=== PATIENT | male | born 1950 | race Caucasian/White ===

== ENCOUNTER 2022-12-23 00:22 | Emergency (ER) | payer MEDICARE ==
[2022-12-23] MEDS ORDERED: Sodium Chloride 0.9% 1000 ML 1,000 ML ONE (00:42)
[2022-12-23] MEDS ORDERED: Sodium Chloride 0.9% 1000 ML 1,000 ML IV SCH (00:45)
--- NOTE | 2022-12-23 00:55 | ERPHSYRPT ---
- History of Present Illness Time Seen by Provider: 12/23/22 00:45 Source: patient Exam Limitations: no limitations Physician History: Patient 72-year-old male presents to our ED via EMS for evaluation status post found down on the street. Patient has a history of seizures. Patient was followed by marimar Ruiz. Patient appears intoxicated. Patient admits to have been drinking. Patient smokes cigarettes. Patient does not recall the circumstances causing his fall. Patient arrived collared not boarded. Patient complains of pain to his face. Patient has abrasions over his nose. There are some dried blood in the left nare. No chest pain or shortness of breath. No nausea vomiting or diaphoresis. Patient reported he lives across the [place] from where he was found down. Per report patient was with friends drinking at a [place] [employer]. Patient's past medical history is not known at this time. His allergy profile is not known at this time. Patient voices no other complaints or concerns at this time. Portions of this note were created with voice recognition technology. There may be grammatical, spelling, punctuation or sound alike errors Timing/Duration: today Severity: moderate Modifying Factors: Improves With: nothing Associated Symptoms: denies symptoms Home Medications: Unobtainable 12/23/22 [History] - Review of Systems Constitutional: No Symptoms, No Fever, No Chills Eyes: No Symptoms Ears, Nose, & Throat: No Symptoms Respiratory: No Symptoms, No Cough, No Dyspnea Cardiac: No Symptoms, No Chest Pain, No Edema, No Syncope Abdominal/Gastrointestinal: No Symptoms, No Abdominal Pain, No Nausea, No Vomiting, No Diarrhea Genitourinary Symptoms: No Symptoms, No Dysuria Musculoskeletal: No Symptoms, No Back Pain, No Neck Pain Skin: No Symptoms, No Rash Neurological: No Symptoms, No Dizziness, No Focal Weakness, No Sensory Changes Psychological: No Symptoms Endocrine: No Symptoms Hematologic/Lymphatic: No Symptoms Immunological/Allergic: No Symptoms All Other Systems: Reviewed and Negative - Nursing Vital Signs Nursing Vital Signs: Initial Vital Signs Pulse Rate 77 12/23/22 00:26 Respiratory Rate 27 H 12/23/22 00:26 Blood Pressure 146/80 12/23/22 00:26 O2 Sat by Pulse Oximetry 96 12/23/22 00:26 Pain Scale Pain Intensity 4 - Physical Exam General Appearance: no apparent distress, alert Eye Exam: PERRL/EOMI, eyes nml inspection Ears, Nose, Throat Exam: normal ENT inspection, TMs normal, pharynx normal, moist mucous membranes, other (Superficial abrasions to the bridge of his nose. There is some blood at the left nare.) Neck Exam: normal inspection, non-tender, supple, full range of motion Respiratory Exam: normal breath sounds, lungs clear, No respiratory distress Cardiovascular Exam: regular rate/rhythm, normal heart sounds, normal peripheral pulses, other (Tenderness to palpation at left side of rib cage. Overlying soft tissue intact) Gastrointestinal/Abdomen Exam: soft, normal bowel sounds, No tenderness, No mass Back Exam: normal inspection, normal range of motion, No CVA tenderness, No vertebral tenderness Extremity Exam: normal inspection, normal range of motion, pelvis stable, other (Abrasion to left elbow and left shoulder involved extremity is neurovascular intact distally. Patient denies bony pain at these locations. Patient able to move extremity/elbow through full range of motion) Neurologic Exam: alert, oriented x 3, cooperative, normal mood/affect, nml cerebellar function, nml station & gait, sensation nml, No motor deficits Skin Exam: normal color, warm, dry, No rash Lymphatic Exam: No adenopathy SpO2 Interpretation: normal SpO2: 97 O2 Delivery: Room Air - Course Nursing assessment & vital signs reviewed: Yes EKG Interpreted by Me: RATE (81), Sinus Rhythm, NORMAL AXIS, prolonged QT interval - CT Exams Maxillofacial Bones CT Interpretation: Tele-radiologist Report (No fracture can be detected of the facial bones. Chronic pansinusitis) Cervical Spine CT Interpretation: Tele-radiologist Report (No acute osseous abnormality. Cervical spine spondylitic changes) Chest CT Interpretation: Tele-radiologist Report (Subpleural contusion with subtle nodularity/alveolar density along with groundglass changes representing possible pulmonary hemorrhage in the left upper lobe adjacent to the rib fractures. Minimal left-sided pleural effusion. Fractures of the fourth through seventh rib on the left side with mild d) Head CT Interpretation: Tele-radiologist Report (No definite calvarium fractures no intracerebral or extra-axial hematoma) Lumbar Spine CT Interpretation: Tele-radiologist Report (No acute osseous abnormality lumbar spine spondylitic changes) Ordered Tests: Active Orders 24 hr Category Date Time Status Warehouse Manager STAT Care 12/23/22 00:33 Active Clean Catch Urine Specimen STAT Care 12/23/22 02:53 Active EKG-ER Only STAT Care 12/23/22 00:33 Active IV Insertion STAT Care 12/23/22 00:33 Active Pulse Oximetry (ED) STAT Care 12/23/22 00:33 Active Telemetry q4h Care 12/23/22 03:09 Active ABDOMEN AND PELVIS W CONTRAST [CT] Stat Exams 12/23/22 00:35 Taken CERVICAL SPINE WO CONTRAST [CT] Stat Exams 12/23/22 00:34 Completed CHEST WITH CONTRAST [CT] Stat Exams 12/23/22 00:34 Taken FACIAL BONES WO CONTRAST [CT] Stat Exams 12/23/22 00:34 Completed HEAD WITHOUT CONTRAST [CT] Stat Exams 12/23/22 00:34 Completed RECONSTRUCTION [CT] Stat Exams 12/23/22 01:53 Completed RECONSTRUCTION [CT] Stat Exams 12/23/22 01:57 Completed CBC W DIFF Stat Lab 12/23/22 00:50 Completed CMP Stat Lab 12/23/22 00:50 Completed ETHYL ALCOHOL Stat Lab 12/23/22 00:50 Completed NT PRO BNPII Stat Lab 12/23/22 00:50 Completed TROPONIN Q4H Lab 12/23/22 00:50 Completed TROPONIN Q4H Lab 12/23/22 04:45 Ordered TROPONIN Q4H Lab 12/23/22 08:45 Ordered UA W/RFX UR CULTURE Stat Lab 12/23/22 02:56 Completed Urine Triage Profile Stat Lab 12/23/22 02:56 Received Medication Summary Generic Name Dose Route Start Last Admin Trade Name Freq PRN Reason Stop Dose Admin Sodium Chloride 1,000 mls @ 100 mls/hr 12/23/22 00:45 12/23/22 00:43 Sodium Chloride 0.9% 1000 Ml IV 01/22/23 00:44 100 mls/hr .Q10H MARIBEL Administration Magnesium Sulfate/Dextrose 100 mls @ 100 mls/hr 12/23/22 03:15 12/23/22 04:18 Magnesium 1 Gm / 100 Ml D5w IV 12/23/22 05:14 100 mls/hr Q1H MARIBEL Administration Potassium Chloride 20 meq in 100 mls @ 50 mls/hr 12/23/22 03:15 12/23/22 03:33 Potassium Chloride 20 Meq In Water 100ml IV 12/23/22 07:14 50 mls/hr Q2H MARIBEL Administration Discontinued Medications Generic Name Dose Route Start Last Admin Trade Name July PRN Reason Stop Dose Admin Ketorolac Tromethamine 30 mg 12/23/22 03:34 12/23/22 03:36 Ketorolac Tromethamine 30 Mg/Ml Inj IV 12/23/22 03:35 30 mg STAT ONE Administration Ketorolac Tromethamine Confirm 12/23/22 03:34 Ketorolac Tromethamine 30 Mg/Ml Inj Administered 12/23/22 03:35 Dose 30 mg .ROUTE .STK-MED ONE Lab/Rad Data: Laboratory Result Diagrams 12/23/22 00:50 12/23/22 00:50 Laboratory Results 12/23/22 12/23/22 12/23/22 Range/Units 02:56 00:50 00:50 WBC (4.0-10.5) x10^3/uL RBC (4.1-5.6) x10^6/uL Hgb (12.5-18.0) g/dL Hct (42-50) % MCV (78-100) fL MCH (26-32) pg MCHC (32-36) g/dL RDW (11.5-14.0) % Plt Count (150-450) x10^3/uL MPV (7.5-11.0) fL Gran % (36.0-66.0) % Immature Gran % (Auto) (0.00-0.4) % Nucleat RBC Rel Count (0.00-0.1) % Eos # (Auto) (0-0.5) x10^3/uL Immature Gran # (Auto) (0.00-0.03) x10^3u/L Absolute Lymphs (auto) (1.0-4.6) x10^3/uL Absolute Monos (auto) (0.0-1.3) x10^3/uL Absolute Nucleated RBC (0.00-0.01) x10^3u/L Lymphocytes % (24.0-44.0) % Monocytes % (0.0-12.0) % Eosinophils % (0.00-5.0) % Basophils % (0.0-0.4) % Absolute Granulocytes (1.4-6.9) x10^3/uL Basophils # (0-0.4) x10^3/uL Sodium (137-145) mmol/L Potassium (3.5-5.1) mmol/L Chloride (98-107) mmol/L Carbon Dioxide (22-30) mmol/L Anion Gap (5-15) MEQ/L BUN (9-20) mg/dL Creatinine (0.66-1.25) mg/dL Estimated GFR ML/MIN Glucose (74-106) mg/dL Calcium (8.4-10.2) mg/dL Total Bilirubin (0.2-1.3) mg/dL AST (17-59) U/L ALT (0-50) U/L Alkaline Phosphatase (38-126) U/L Troponin I < 0.012 (0.000-0.034) ng/mL NT-Pro-B Natriuret Pep 252 (<300) pg/mL Serum Total Protein (6.3-8.2) g/dL Albumin (3.5-5.0) g/dL Urine Color Yellow (Yellow) Urine Appearance Clear (Clear) Urine pH 5.5 (4.6-8.0) Ur Specific [place] 1.015 (1.005-1.030) Urine Protein Negative (Negative) Urine Glucose (UA) Negative (Negative) mg/dL Urine Ketones Negative (Negative) Urine Blood Negative (Negative) Urine Nitrite Negative (Negative) Urine Bilirubin Negative (Negative) Urine Urobilinogen 0.2 (0.2) mg/dL Ur Leukocyte Esterase Negative (Negative) U Hyaline Cast (Auto) NONE SEEN (0-2) /LPF Urine Microscopic RBC 0-2 (0-5) /HPF Urine Microscopic WBC 0-2 (0-5) /HPF Ur Epithelial Cells None Seen (None Seen) /HPF Urine Bacteria None Seen (None Seen) /HPF Urine Culture Reflexed NO (NO) Ethyl Alcohol (0-10) mg/dL 12/23/22 12/23/22 Range/Units 00:50 00:50 WBC 12.0 H (4.0-10.5) x10^3/uL RBC 4.20 (4.1-5.6) x10^6/uL Hgb 12.8 (12.5-18.0) g/dL Hct 38.6 L (42-50) % MCV 91.9 (78-100) fL MCH 30.5 (26-32) pg MCHC 33.2 (32-36) g/dL RDW 13.9 (11.5-14.0) % Plt Count 377 (150-450) x10^3/uL MPV 8.6 (7.5-11.0) fL Gran % 61.4 (36.0-66.0) % Immature Gran % (Auto) 0.7 H (0.00-0.4) % Nucleat RBC Rel Count 0.0 (0.00-0.1) % Eos # (Auto) 0.57 H (0-0.5) x10^3/uL Immature Gran # (Auto) 0.08 H (0.00-0.03) x10^3u/L Absolute Lymphs (auto) 3.15 (1.0-4.6) x10^3/uL Absolute Monos (auto) 0.73 (0.0-1.3) x10^3/uL Absolute Nucleated RBC 0.00 (0.00-0.01) x10^3u/L Lymphocytes % 26.3 (24.0-44.0) % Monocytes % 6.1 (0.0-12.0) % Eosinophils % 4.8 (0.00-5.0) % Basophils % 0.7 (0.0-0.4) % Absolute Granulocytes 7.39 H (1.4-6.9) x10^3/uL Basophils # 0.08 (0-0.4) x10^3/uL Sodium 127 L (137-145) mmol/L Potassium 3.4 L (3.5-5.1) mmol/L Chloride 95 L (98-107) mmol/L Carbon Dioxide 21 L (22-30) mmol/L Anion Gap 13.9 (5-15) MEQ/L BUN 15 (9-20) mg/dL Creatinine 1.04 (0.66-1.25) mg/dL Estimated GFR > 60.0 ML/MIN Glucose 96 (74-106) mg/dL Calcium 7.4 L (8.4-10.2) mg/dL Total Bilirubin 0.20 (0.2-1.3) mg/dL AST 24 (17-59) U/L ALT 15 (0-50) U/L Alkaline Phosphatase 83 (38-126) U/L Troponin I (0.000-0.034) ng/mL NT-Pro-B Natriuret Pep (<300) pg/mL Serum Total Protein 6.6 (6.3-8.2) g/dL Albumin 3.7 (3.5-5.0) g/dL Urine Color (Yellow) Urine Appearance (Clear) Urine pH (4.6-8.0) Ur Specific [place] (1.005-1.030) Urine Protein (Negative) Urine Glucose (UA) (Negative) mg/dL Urine Ketones (Negative) Urine Blood (Negative) Urine Nitrite (Negative) Urine Bilirubin (Negative) Urine Urobilinogen (0.2) mg/dL Ur Leukocyte Esterase (Negative) U Hyaline Cast (Auto) (0-2) /LPF Urine Microscopic RBC (0-5) /HPF Urine Microscopic WBC (0-5) /HPF Ur Epithelial Cells (None Seen) /HPF Urine Bacteria (None Seen) /HPF Urine Culture Reflexed (NO) Ethyl Alcohol 199 H (0-10) mg/dL - Progress Progress: improved Progress Note: 12/23/22 05:[address] Forbes trauma surgeon at [facility] who accepts patient at 5:05 AM. 12/23/22 05:12 Patient is a 72-year-old male presents to our ED via EMS after being found down on the [place]. Patient was reportedly unresponsive however upon arrival to our ED patient was alert and oriented x4. Physical exam reveals tenderness at the left rib. Patient has abrasions to the left elbow and left shoulder. Superficial abrasions to the knees. Also abrasions over the bridge of the nose. Testing ordered include EKG which revealed normal sinus rhythm. CBC essentially nonremarkable. CMP reveals a potassium of 3.4. Patient also hyponatremic. Potassium replaced patient received IV magnesium IV potassium and IV fluids. Troponin negative. Alcohol elevated at 199. Patient received Toradol for pain control. Patient had a CT head which is nonremarkable. CT face nonremarkable. CT C-spine negative. Cervical collar removed. CTA chest reveals fractures of ribs 456 and 7. Rib 7 is fractured at 2 locations. The underlying lung shows contusion possible hemorrhage. Bilateral lung bases may also demonstrate lung contusion. CT abdomen pelvis sent and unremarkable. 3D reconstruction views of the thoracic and lumbar spine were performed. No fracture dislocation of the lumbar spine. There are some endplate changes most notably at T7 which reveals compression of the endplate which may or may not be related to trauma. Plan of care discussed with patient. He agrees to transfer to [facility] for further evaluation and treatment. Portions of this note were created with voice recognition technology. There may be grammatical, spelling, punctuation or sound alike errors Complexity of problems addressed is high, threat to bodily function No critical care time Complexity of data reviewed and analyzed is extensive. Test ordered test reviewed. Results of labs and imaging studies were analyzed. Clinical correlation made between the findings and history and physical examination. Management discussed with trauma surgeon Dr. Forbes who accepts transfer. Transfer was accepted at 5:05 AM. Risk of complication and or risk of morbidity/mortality of patient management is high. Patient requires hospitalization/transfer to higher level of care Vital stable. Time spent to transfer patient is approximately 20 minutes. Plan of care established via shared decision making. Patient agrees to transfer to [facility] for further evaluation and treatment. Portions of this note were created with voice recognition technology. There may be grammatical, spelling, punctuation or sound alike errors 12/23/22 05:20 Counseled pt/family regarding: lab results, diagnosis, rad results - Departure Departure Disposition: Transfer Clinical Impression: Fall, Facial abrasion, Leukocytosis, Hyponatremia, Hypokalemia, Hypocalcemia, Alcohol intoxication, Chronic pansinusitis, Lung contusion, Pulmonary hemorrhage, Rib fractures, Left-sided pleural effusion, Calcified granuloma left lung, Mediastinal lymph nodes, Left fourth fifth and sixth rib fracture, Fracture of ribs, seven, Endplate compression fracture, Fatty liver Condition: Stable Critical Care Time: No Referrals: KRISTIN TAVERAS MD [Primary Care Provider] - Follow up/PCP as directed
[2022-12-23 00:58] LABS: Absolute Neutrophil Ct (ANC) 7.39 x10^3/uL (1.4-6.9); BASOPHIL % 0.7 % (0.0-0.4); Basophil (Absolute #) 0.08 x10^3/uL (0-0.4); Eosinophil % 4.8 % (0.00-5.0); Eosinophil (Absolute #) 0.57 x10^3/uL (0-0.5); Hematocrit 38.6 % (42-50); Hemoglobin 12.8 g/dL (12.5-18.0); IMMATURE GRAN # 0.08 x10^3u/L (0.00-0.03); IMMATURE GRAN % 0.7 % (0.00-0.4); Lymphocyte (Absolute #) 3.15 x10^3/uL (1.0-4.6); Lymphocytes % 26.3 % (24.0-44.0); Mean Cell Volume 91.9 fL (78-100); Mean Corpuscular Hemoglobin 30.5 pg (26-32); Mean Corpuscular Hgb Concent. 33.2 g/dL (32-36); Mean Platelet Volume 8.6 fL (7.5-11.0); Monocyte (Absolute #) 0.73 x10^3/uL (0.0-1.3); Monocytes % 6.1 % (0.0-12.0); Neutrophil % 61.4 % (36.0-66.0); Platelet Count 377 x10^3/uL (150-450); Red Cell Distribution Width 13.9 % (11.5-14.0)
[2022-12-23 01:12] LABS: ALBUMIN 3.7 g/dL (3.5-5.0); ALKALINE PHOSPHATASE 83 U/L (38-126); ANION GAP 13.9 MEQ/L (5-15); BLOOD UREA NITROGEN 15 mg/dL (9-20); CHLORIDE 95 mmol/L (98-107); Calcium 7.4 mg/dL (8.4-10.2); Carbon Dioxide 21 mmol/L (22-30); Creatinine 1 1.04 mg/dL (0.66-1.25); EST GLOMERULAR FILTRATION RATE > 60.0 ML/MIN; ETHYL ALCOHOL 199 mg/dL (0-10); Glucose 96 mg/dL (74-106); Potassium 3.4 mmol/L (3.5-5.1); SGOT/AST 24 U/L (17-59); SGPT/ALT 15 U/L (0-50); SODIUM 127 mmol/L (137-145); Total Protein 6.6 g/dL (6.3-8.2)
--- NOTE | 2022-12-23 02:35 | XRAY ---
CLINICAL HISTORY:trauma COMPARISON:None TECHNIQUE:Axial sections of CT cervical spine were obtained without intravenous contrast administration. Reformatted coronal and sagittal images were acquired. FINDINGS: No acute fractures were noted. Subtle grade 1 retrolisthesis of C5 over C6, likely chronic/secondary to degeneration. Straightening of cervical lordosis suggests muscle spasm. Vertebral body heights are intact. Reduced C5-C6 disc height. Spondylotic changes in the cervical spine with osteophytes and facet arthropathic changes. Disc osteophyte complexes at C5-C6 and C6-C7 levels in combination with multilevel facet arthropathic changes resulting in multilevel neural foraminal narrowing. MRI would be helpful for further evaluation. Visualized paraspinal soft tissues appear unremarkable. IMPRESSION: 1. No acute osseous abnormality. 2. Cervical spine spondylotic changes. Electronically Signed by: Aishwarya Nick MD. (12/23/2022 01:34:22 CORRESPONDENCE DICTATOR)
--- NOTE | 2022-12-23 02:52 | XRAY ---
CLINICAL HISTORY:trauma COMPARISON:None. TECHNIQUE:A non-Contrast CT scan of the maxillofacial bones was performed, with sagittal and coronal multiplanar reconstruction. FINDINGS: Maxillofacial bones are unremarkable, no fracture lines can be detected. Mucosal thickening of all paranasal sinuses. No evidence of soft tissue hematoma. Normal both orbits. IMPRESSION: 1. No fracture can be detected. 2. Chronic pansinusitis. Electronically Signed by: Aishwarya Nick MD. (12/23/2022 01:50:44 GROUP LEADER SEMICONDUCTOR PROCESSING)
[2022-12-23 03:05] LABS: Appearance Clear (Clear); Bacteria None Seen /HPF (None Seen); Bilirubin Negative (Negative); Blood Negative (Negative); Epithelial Cells None Seen /HPF (None Seen); Glucose, Urine Negative (Negative); Hyaline Casts NONE SEEN /LPF (0-2); Ketones Negative (Negative); Leukocyte Esterase Negative (Negative); Nitrite Negative (Negative); Ph 5.5 (4.6-8.0); Protein,Urine Dip Negative (Negative); RBC 0-2 /HPF (0-5); Specific Gravity 1.015 (1.005-1.030); Urobilinogen 0.2 mg/dL (0.2); WBC 0-2 /HPF (0-5)
[2022-12-23 03:06] LABS: ADD URINE CULTURE? NO (NO)
--- NOTE | 2022-12-23 03:10 | XRAY ---
CLINICAL HISTORY:trauma COMPARISON:None. TECHNIQUE:Axial noncontrast CT scan of the brain was performed from the skull base to the high parietal region. FINDINGS: No definite calvarium fractures. No intracerebral or extra axial hematoma. The visualized brain parenchyma shows normal appearance. No focal parenchymal abnormalities are demonstrated. Nicholas-white matter differentiation is maintained. No midline shifts or deformity. Normal size and configuration of the cerebral ventricles. Normal CT appearance of the posterior fossa structures namely the cerebellar hemispheres, brainstem and cerebellar peduncles. The IACs are unremarkable. The cerebello-pontine angles are clear. The pituitary gland, the pineal gland, the optic chiasm is unremarkable. The osseous structures in the skull base are unremarkable. IMPRESSION: No definite calvarium fractures. No intracerebral or extra axial hematoma. Electronically Signed by: Aishwarya Nick MD. (12/23/2022 02:07:59 BOOKSEAMER BLINDSTITCH)
[2022-12-23 03:16] LABS: Barbiturate,Urine NEGATIVE (NEGATIVE); Benzodiazepine,Urine NEGATIVE (NEGATIVE); Cocaine,Urine NEGATIVE (NEGATIVE); Methadone,Urine NEGATIVE (NEGATIVE); Opiate,Urine NEGATIVE (NEGATIVE); PCP,Urine NEGATIVE (NEGATIVE); THC,Urine POSITIVE (NEGATIVE)
--- NOTE | 2022-12-23 03:24 | XRAY ---
CLINICAL HISTORY:PAIN T SPINE COMPARISON:CT chest/thorax with contrast 12/23/2022 TECHNIQUE:Axial sections of the thoracic spine were obtained with the administration of intravenous contrast. Reformatted coronal and sagittal images were acquired. FINDINGS: Reduced vertebral body heights of the T5-T9 vertebral bodies. This is most pronounced in the T7 vertebral body with approximately 45-50 % reduction in vertebral body height with anterior wedging. Redemonstration of multiple left-sided rib fractures with mild displacement, as detailed in the CT chest report. No subluxation or dislocation. No central canal or neural foraminal stenosis. Thoracic kyphosis is maintained. Spondylotic changes in the thoracic spine with multilevel osteophytes and facet arthropathic changes. Peripheral ground glass opacity was seen at the dependent part of both lower lung lobes and bilateral pleural thickening, suggestive of lung contusion in the presence of trauma history. IMPRESSION: 1. Reduced vertebral body heights of T5-T9 vertebral bodies, most pronounced in the T7 vertebral body. In keeping with the history of trauma, this finding is suggestive of endplate compression fractures. MRI would be helpful for further evaluation. 2. Redemonstration of multiple left-sided rib fractures with mild displacement, as detailed in the CT chest report. Electronically Signed by: Aishwarya Nick MD. (12/23/2022 02:22:07 SCRAP DROP OPERATOR)
--- NOTE | 2022-12-23 03:26 | XRAY ---
CLINICAL HISTORY:PAIN LUMBAR SPINE COMPARISON:None TECHNIQUE:Axial sections of the lumbar spine were obtained with the administration of intravenous contrast. Reformatted coronal and sagittal images were acquired. FINDINGS: Limited examination as L1 vertebral body is not adequately covered. No acute fracture, subluxation or dislocation. Spondylotic changes in the lumbar spine with multilevel osteophytes and facet arthropathy changes. Vertebral body heights of the visualized vertebra are intact. Disc osteophyte complexes at L4-L5 and L5-S1 levels result in neural foraminal stenosis in combination with facet arthropathic changes. Suggestion of mild disc bulge at L3-L4 level. MRI would be helpful for further delineation. Reduced L5-S1 disc space with vacuum phenomena. Subcutaneous edema in the posterior lumbar region soft tissues. IMPRESSION: 1. No acute osseous abnormality. 2. Lumbar spine spondylotic changes. Electronically Signed by: Aishwarya Nick MD. (12/23/2022 02:24:10 CLERICAL SUPPORT)
[2022-12-23] MEDS ORDERED: POTASSIUM CHLORIDE 20 mEq IN WATER 100ML 100 ML IV ONE ×2 (03:30→05:20)
[2022-12-23] MEDS: POTASSIUM CHLORIDE 20 mEq IN WATER 100ML 20 MEQ/100 ML BAG IV SCH ×2 (03:33→05:21)
[2022-12-23] MEDS ORDERED: Magnesium 1 Gm / 100 Ml D5W*** 100 ML IV ONE ×2 (03:33→04:12)
[2022-12-23] MEDS ORDERED: TORAdol 30 mg Injection IV ONE (03:34)
[2022-12-23] MEDS ORDERED: TORAdol 30 mg Injection ONE (03:34)
[2022-12-23] MEDS: Magnesium 1 Gm / 100 Ml D5W*** 100 ML IV SCH ×2 (03:38→04:18)
[2022-12-23 05:08] VITALS: O2SAT 97
[2022-12-23 05:08] LABS: Amphetamine,Urine POSITIVE (NEGATIVE)
[2022-12-23 05:16] VITALS: RESP 22
[2022-12-23] MEDS ORDERED: MORPHINE SULFATE 4 MG INJ IV ONE (05:19)
[2022-12-23] MEDS ORDERED: MORPHINE SULFATE 4 MG INJ ONE (05:20)
[2022-12-23 05:44] VITALS: BP 145/75; PULSE 84; TEMP 98
--- NOTE | 2022-12-24 08:25 | XRAY ---
CLINICAL HISTORY:trauma COMPARISON:None. TECHNIQUE:CT scan of the abdomen and pelvis was performed with IV contrast. Coronal and sagittal reconstructive images were also obtained. FINDINGS: Peripheral ground glass opacity was seen at the dependent part of both lower lung lobes and bilateral pleural thickening, suggestive of lung contusion in the presence of trauma history. Fracture of the left sixth and seventh ribs laterally. Multiple foci of calcification seen within the spleen suggestive of old granuloma. The liver is normal in size reflecting diffuse hypodensity suggestive of fatty infiltration no focal abnormality. The portal vein, intrahepatic biliary radicals and the bile ducts are normal. The spleen, pancreas, and adrenal glands are unremarkable. The kidneys are unremarkable. They are normal in size and shape. No calculi or hydronephrosis. The gallbladder is normal. No pericholecystic collection or radio-dense calculi in the gall bladder The ascending colon, the transverse colon, the descending colon, visualized small bowel loops are unremarkable. There is no evidence of significant enlargement of the mesenteric or retroperitoneal lymph nodes. The urinary bladder is unremarkable. The rectosigmoid colon is unremarkable. The pelvic vasculature is unremarkable. No evidence of pelvic lymphadenopathy. Vertebral spondylotic changes. IMPRESSION: 1. No evidence of abdominal organ or vascular injury. 2. Peripheral ground glass opacity seen at the dependent part of both lower lung lobes and bilateral pleural thickening, suggestive of lung contusion in the presence of trauma history, would recommend CT chest for further evaluation. 3. Fracture of the left sixth and seventh ribs laterally. 4. Fatty liver. 5. Multiple foci of calcification seen within the spleen suggestive of old granuloma. [facility] ER was called at [phone] at 2:37 AM EST, 12/23/2022 and Cecile was informed regarding Significant Findings. Electronically Signed by: Aishwarya Nick MD. (12/23/2022 01:39:23 PARKS AND RECREATION MANAGER)
--- NOTE | 2022-12-24 08:25 | XRAY ---
CLINICAL HISTORY:trauma COMPARISON:None. TECHNIQUE:Active sections of CT chest examination were obtained after administration of intravenous contrast. Reformatted coronal and sagittal images were acquired. FINDINGS: Subpleural opacity with subtle nodularity/alveolar densities along with ground glass changes in the left upper lobe adjacent to the rib fractures, likely representing lung contusion with possible pulmonary hemorrhage. Ground glass changes in the dependent portion of bilateral lower lobes with subpleural reticulation. STreak of left sided pleural effusion. 5 mm calcified granuloma in the left upper lobe. The trachea and bronchi are patent. Few prominent mediastinal lymph nodes are seen, the largest seen in the precarinal location [on the left side] measuring approximately 9 mm in short axis. Heart size is normal. No pericardial effusion. The pulmonary trunk, and main right and left pulmonary arteries are well opacified. The normal diameter of the pulmonary trunk. No evidence of aneurysmal dilatation of the thoracic aorta. The thyroid gland appears unremarkable. No discrete chest wall mass. Mildly displaced fracture of the shaft (lateral ) of the left fourth, fifth and sixth rib. Fracture of the seventh rib in 2 places, with mild displacement and the fracture nearer to the costochondral junction. Reduced vertebral body heights of T5, T6, T7, T8, and T9 thoracic vertebra, in keeping with a history of, trauma may be secondary to endplate compression fractures. The reduction of height is most pronounced in the T7 vertebra with approximately 40% reduction in vertebral body height MRI is advised for further evaluation to determine the age of fractures. IMPRESSION: 1. Subpleural contusion with subtle nodularity/alveolar densities along with ground glass changes representing possible pulmonary hemorrhage in the left upper lobe adjacent to the rib fractures. 2. Minimal left sided pleural effusion. 3. Ground glass changes in the dependent portion of bilateral lower lobes may represent post-traumatic sequale, with subpleural reticulation. 4. Fractures of the fourth to seventh rib on the left side with mild displacement. 5. Reduced vertebral body heights of thoracic vertebral from T5-T9, in keeping with a history of trauma may be secondary to compression fractures. MRI would be helpful for further evaluation. [facility] ER was called at [phone] at 2:52 AM EST, 12/23/2022 and Cecile was informed regarding Significant Findings. Electronically Signed by: Aishwarya Nick MD. (12/23/2022 01:53:20 [facility])
== END 2022-12-23 05:45 | disposition short-term general hospital (02) ==
LOC: ED 00:22
DX: F10.129 Alcohol abuse with intoxication, unspecified (principal); Y90.6 Blood alcohol level of 120-199 mg/100 ml; S00.81XA Abrasion of other part of head, initial encounter; S22.42XA Multiple fractures of ribs, left side, initial encounter for closed fracture; S27.322A Contusion of lung, bilateral, initial encounter; S22.000A Wedge compression fracture of unspecified thoracic vertebra, initial encounter for closed fracture; W18.30XA Fall on same level, unspecified, initial encounter; Y92.410 Unspecified street and highway as the place of occurrence of the external cause; D72.829 Elevated white blood cell count, unspecified; E87.1 Hypo-osmolality and hyponatremia; E87.6 Hypokalemia; E83.51 Hypocalcemia; J32.4 Chronic pansinusitis; R04.89 Hemorrhage from other sites in respiratory passages; J90 Pleural effusion, not elsewhere classified; J84.10 Pulmonary fibrosis, unspecified; R59.0 Localized enlarged lymph nodes; K76.0 Fatty (change of) liver, not elsewhere classified; Z72.0 Tobacco use
CPT/HCPCS: 36000; 36415; 70450; 70486; 71260; 72125; 74177; 76376; 80053; 80307; 81001; 82077; 83880; 84484; 85025; 93005; 93041; 94760; 96360; 96365; 96366; 96368; 96374; 96375; 99285; J1885; J2270; J3475; J3480

== ENCOUNTER 2024-03-26 19:24 | Observation (INO) | payer MEDICARE ==
--- NOTE | 2024-03-26 20:08 | ERPHSYRPT ---
- History of Present Illness Time Seen by Provider: 03/26/24 20:08 Source: patient Physician History: 74-year-old male presents to our ED for evaluation of fatigue and dizziness. Patient states symptoms have been ongoing for the past 2 to 3 days. Patient reports that he woke up on the floor this morning. Patient has a small right sided head abrasion. No neck pain. Cervical spine cleared clinically. Patient told his brother about how he had been feeling. His brother advised him to come to our ED for an evaluation. Patient's symptoms are constant. Symptoms are moderate in intensity. No specific worsening or improving factors. Patient denies history of the same. Patient otherwise feels well. He voices no other complaints or concerns at this time. Portions of this note were created with voice recognition technology. There may be grammatical, spelling, punctuation or sound alike errors Timing/Duration: day(s) (3 days), other Severity: moderate Modifying Factors: Improves With: nothing Associated Symptoms: denies symptoms Allergies/Adverse Reactions: No Known Drug Allergies Allergy (Verified 03/26/24 20:27) Home Medications: Aspirin EC 81 mg [Ecotrin 81 mg] 1 tab PO DAILY 03/26/24 [History] Metoprolol Succinate 50 mg [Toprol Xl 50 MG] 50 mg PO DAILY 03/26/24 [History] Hx Tetanus, Diphtheria Vaccination/Date Given: (unknown) Hx Influenza Vaccination/Date Given: No Hx Pneumococcal Vaccination/Date Given: No - Review of Systems Constitutional: No Symptoms, No Fever, No Chills Eyes: No Symptoms Ears, Nose, & Throat: No Symptoms Respiratory: No Symptoms, No Cough, No Dyspnea Cardiac: No Symptoms, No Chest Pain, No Edema, No Syncope Abdominal/Gastrointestinal: No Symptoms, No Abdominal Pain, No Nausea, No Vomiting, No Diarrhea Genitourinary Symptoms: No Symptoms, No Dysuria Musculoskeletal: No Symptoms, No Back Pain, No Neck Pain Skin: No Symptoms, No Rash Neurological: No Symptoms, No Dizziness, No Focal Weakness, No Sensory Changes Psychological: No Symptoms Endocrine: No Symptoms Hematologic/Lymphatic: No Symptoms Immunological/Allergic: No Symptoms All Other Systems: Reviewed and Negative - Past Medical History Pertinent Past Medical History: Yes Neurological History: Seizures ENT History: No Pertinent History Cardiac History: High Cholesterol, Hypertension Respiratory History: No Pertinent History Endocrine Medical History: No Pertinent History Musculoskeletal History: No Pertinent History GI Medical History: No Pertinent History History: No Pertinent History Psycho-Social History: Anxiety Male Reproductive Disorders: No Pertinent History - Past Surgical History Past Surgical History: Yes - Social History Smoking Status: Current every day smoker How long have you smoked: 55 yrs Exposure to second hand smoke: Yes Drug Use: marijuana Patient Lives Alone: Yes - Nursing Vital Signs Nursing Vital Signs: Initial Vital Signs Pulse Rate 95 H 03/26/24 19:30 Respiratory Rate 16 03/26/24 19:30 Blood Pressure 147/87 03/26/24 19:30 O2 Sat by Pulse Oximetry 99 03/26/24 19:30 Pain Scale Pain Intensity 0 - Physical Exam General Appearance: no apparent distress, alert Eye Exam: PERRL/EOMI, eyes nml inspection Ears, Nose, Throat Exam: normal ENT inspection, moist mucous membranes Neck Exam: normal inspection, non-tender, supple, full range of motion Respiratory Exam: normal breath sounds, lungs clear, No respiratory distress Cardiovascular Exam: regular rate/rhythm, normal heart sounds, normal peripheral pulses Gastrointestinal/Abdomen Exam: soft, normal bowel sounds, No tenderness, No mass Back Exam: normal inspection, normal range of motion, No CVA tenderness, No vertebral tenderness Extremity Exam: normal inspection, normal range of motion, pelvis stable Neurologic Exam: alert, oriented x 3, cooperative, normal mood/affect, sensation nml, No motor deficits Skin Exam: normal color, warm, dry, No rash Lymphatic Exam: No adenopathy SpO2 Interpretation: normal O2 Delivery: Room Air - Course Nursing assessment & vital signs reviewed: Yes EKG Interpreted by Me: RATE (97), Sinus Rhythm, NORMAL AXIS, NORMAL INTERVALS, NORMAL QRS - CT Exams Head CT Interpretation: Tele-radiologist Report (Remote lacunar infarct right thalamus) Other CT Interpretation: Tele-radiologist Report (CTA head negative for stenotic lesions/LVO. 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 Care 03/26/24 20:16 Active EKG-ER Only STAT Care 03/26/24 20:16 Active IV Insertion STAT Care 03/26/24 20:16 Active Pulse Oximetry (ED) STAT Care 03/26/24 20:[address] ANGIOGRAPHY NECK [CT] Stat Exams 03/26/24 22:19 Completed CTA HEAD W AND/OR WO CONTRAST [CT] Stat Exams 03/26/24 22:19 Completed HEAD WITHOUT CONTRAST [CT] Stat Exams 03/26/24 19:42 Taken CBC W DIFF Stat Lab 03/26/24 19:35 Completed CMP Stat Lab 03/26/24 19:35 Completed ETHYL ALCOHOL Stat Lab 03/26/24 19:35 Completed Lactic Acid Stat Lab 03/26/24 20:16 Completed MAGNESIUM Stat Lab 03/26/24 19:35 Completed NT PRO BNPII Stat Lab 03/26/24 19:35 Completed TROPONIN Q4H Lab 03/26/24 19:35 Completed TROPONIN Q4H Lab 03/27/24 00:15 Completed TROPONIN Q4H Lab 03/27/24 04:30 Ordered UA W/RFX UR CULTURE Stat Lab 03/26/24 22:25 Completed Urine Triage Profile Stat Lab 03/26/24 22:25 Completed Medication Summary Generic Name Dose Route Start Last Admin Trade Name Freq PRN Reason Stop Dose Admin Sodium Chloride 1,000 mls @ 50 mls/hr 03/26/24 20:30 03/26/24 20:23 Sodium Chloride 0.9% 1000 Ml IV 04/25/24 20:29 50 mls/hr .Q20H MARIBEL Administration Ceftriaxone Sodium 1 gm in 100 mls @ 200 mls/hr 03/27/24 00:54 03/27/24 00:59 Rocephin 1 Gm / 100 Ml Nacl IV 03/27/24 01:23 200 mls/hr STAT ONE 200 mls/hr Administration Discontinued Medications Generic Name Dose Route Start Last Admin Trade Name Frewilliams PRN Reason Stop Dose Admin Aspirin 324 mg 03/26/24 22:27 03/26/24 22:34 Aspirin 81 Mg Tab.Chew PO 03/26/24 22:28 324 mg STAT ONE Administration Aspirin Confirm 03/26/24 22:32 Aspirin 81 Mg Tab.Chew Administered 03/26/24 22:33 Dose 324 mg .ROUTE .STK-MED ONE Ceftriaxone Sodium Confirm 03/27/24 00:57 Rocephin 1 Gm / 100 Ml Nacl Administered 03/27/24 00:58 Dose 1 gm in 100 mls @ ud IV .STK-MED ONE Lab/Rad Data: Laboratory Result Diagrams 03/26/24 19:35 03/26/24 19:35 Laboratory Results 03/27/24 03/26/24 03/26/24 Range/Units 00:15 22:25 22:25 WBC (4.23-9.07) x10^3/uL RBC (4.63-6.08) x10^6/uL Hgb (13.7-17.5) g/dL Hct (40.1-51.0) % MCV (79.0-92.2) fL MCH (25.7-32.2) pg MCHC (32.3-36.5) g/dL RDW (11.6-14.4) % Plt Count (163-337) x10^3/uL MPV (9.4-12.4) fL Gran % (34.0-67.9) % Immature Gran % (Auto) (0.001-0.429) % Nucleat RBC Rel Count (0.00-0.2) % Eos # (Auto) (0.04-0.54) x10^3/uL Immature Gran # (Auto) (0.001-0.031) x10^3u/L Absolute Lymphs (auto) (1.32-3.57) x10^3/uL Absolute Monos (auto) (0.30-0.82) x10^3/uL Absolute Nucleated RBC (0.00-0.012) x10^3u/L Lymphocytes % (21.8-53.1) % Monocytes % (5.3-12.2) % Eosinophils % (0.8-7.0) % Basophils % (0.2-1.2) % Absolute Granulocytes (1.78-5.38) x10^3/uL Basophils # (0.01-0.08) x10^3/uL Sodium (135-145) mmol/L Potassium (3.5-5.1) mmol/L Chloride (98-107) mmol/L Carbon Dioxide (22-30) mmol/L Anion Gap (5-15) MEQ/L BUN (9-20) mg/dL Creatinine (0.66-1.25) mg/dL Estimated GFR ML/MIN Glucose (74-106) mg/dL Lactic Acid (0.4-2.0) Calcium (8.4-10.2) mg/dL Magnesium (1.6-2.3) mg/dL Total Bilirubin (0.2-1.3) mg/dL AST (17-59) U/L ALT (0-50) U/L Alkaline Phosphatase (38-126) U/L Troponin I < 0.012 (0.000-0.033) ng/mL NT-Pro-B Natriuret Pep (<300) pg/mL Serum Total Protein (6.3-8.2) g/dL Albumin (3.5-5.0) g/dL Urine Color Yellow (Yellow) Urine Appearance Clear (Clear) Urine pH 5.0 (4.6-8.0) Ur Specific [place] 1.020 (1.005-1.030) Urine Protein Negative (Negative) Urine Glucose (UA) Negative (Negative) mg/dL Urine Ketones Negative (Negative) Urine Blood Negative (Negative) Urine Nitrite Negative (Negative) Urine Bilirubin Negative (Negative) Urine Urobilinogen 0.2 (0.2) mg/dL Ur Leukocyte Esterase Small A (Negative) U Hyaline Cast (Auto) NONE SEEN (0-2) /LPF Urine Microscopic RBC 0-2 (0-5) /HPF Urine Microscopic WBC 6-10 A (0-5) /HPF Ur Epithelial Cells None Seen (None Seen) /HPF Urine Bacteria None Seen (None Seen) /HPF Urine Culture Reflexed NO (NO) Urine Opiates Level NEGATIVE (NEGATIVE) Ur Methadone NEGATIVE (NEGATIVE) Urine Barbiturates NEGATIVE (NEGATIVE) Ur Phencyclidine (PCP) NEGATIVE (NEGATIVE) Urine Amphetamine POSITIVE A (NEGATIVE) U Benzodiazepine Level NEGATIVE (NEGATIVE) Urine Cocaine NEGATIVE (NEGATIVE) Urine Marijuana (THC) NEGATIVE (NEGATIVE) Ethyl Alcohol (0-10) mg/dL 03/26/24 03/26/24 03/26/24 Range/Units 20:16 19:35 19:35 WBC (4.23-9.07) x10^3/uL RBC (4.63-6.08) x10^6/uL Hgb (13.7-17.5) g/dL Hct (40.1-51.0) % MCV (79.0-92.2) fL MCH (25.7-32.2) pg MCHC (32.3-36.5) g/dL RDW (11.6-14.4) % Plt Count (163-337) x10^3/uL MPV (9.4-12.4) fL Gran % (34.0-67.9) % Immature Gran % (Auto) (0.001-0.429) % Nucleat RBC Rel Count (0.00-0.2) % Eos # (Auto) (0.04-0.54) x10^3/uL Immature Gran # (Auto) (0.001-0.031) x10^3u/L Absolute Lymphs (auto) (1.32-3.57) x10^3/uL Absolute Monos (auto) (0.30-0.82) x10^3/uL Absolute Nucleated RBC (0.00-0.012) x10^3u/L Lymphocytes % (21.8-53.1) % Monocytes % (5.3-12.2) % Eosinophils % (0.8-7.0) % Basophils % (0.2-1.2) % Absolute Granulocytes (1.78-5.38) x10^3/uL Basophils # (0.01-0.08) x10^3/uL Sodium 134 L (135-145) mmol/L Potassium 5.1 (3.5-5.1) mmol/L Chloride 107 (98-107) mmol/L Carbon Dioxide 21 L (22-30) mmol/L Anion Gap 11.2 (5-15) MEQ/L BUN 69 H (9-20) mg/dL Creatinine 1.32 H (0.66-1.25) mg/dL Estimated GFR 57.0 ML/MIN Glucose 111 H (74-106) mg/dL Lactic Acid 2.1 H (0.4-2.0) Calcium 8.9 (8.4-10.2) mg/dL Magnesium 2.1 (1.6-2.3) mg/dL Total Bilirubin 0.50 (0.2-1.3) mg/dL AST 23 (17-59) U/L ALT 16 (0-50) U/L Alkaline Phosphatase 71 (38-126) U/L Troponin I 0.016 (0.000-0.033) ng/mL NT-Pro-B Natriuret Pep 132 (<300) pg/mL Serum Total Protein 6.6 (6.3-8.2) g/dL Albumin 3.8 (3.5-5.0) g/dL Urine Color (Yellow) Urine Appearance (Clear) Urine pH (4.6-8.0) Ur Specific [place] (1.005-1.030) Urine Protein (Negative) Urine Glucose (UA) (Negative) mg/dL Urine Ketones (Negative) Urine Blood (Negative) Urine Nitrite (Negative) Urine Bilirubin (Negative) Urine Urobilinogen (0.2) mg/dL Ur Leukocyte Esterase (Negative) U Hyaline Cast (Auto) (0-2) /LPF Urine Microscopic RBC (0-5) /HPF Urine Microscopic WBC (0-5) /HPF Ur Epithelial Cells (None Seen) /HPF Urine Bacteria (None Seen) /HPF Urine Culture Reflexed (NO) Urine Opiates Level (NEGATIVE) Ur Methadone (NEGATIVE) Urine Barbiturates (NEGATIVE) Ur Phencyclidine (PCP) (NEGATIVE) Urine Amphetamine (NEGATIVE) U Benzodiazepine Level (NEGATIVE) Urine Cocaine (NEGATIVE) Urine Marijuana (THC) (NEGATIVE) Ethyl Alcohol < 10 (0-10) mg/dL 03/26/24 Range/Units 19:35 WBC 13.9 H (4.23-9.07) x10^3/uL RBC 3.37 L (4.63-6.08) x10^6/uL Hgb 10.1 L (13.7-17.5) g/dL Hct 29.2 L (40.1-51.0) % MCV 86.6 (79.0-92.2) fL MCH 30.0 (25.7-32.2) pg MCHC 34.6 (32.3-36.5) g/dL RDW 13.4 (11.6-14.4) % Plt Count 418 H (163-337) x10^3/uL MPV 9.6 (9.4-12.4) fL Gran % 74.2 H (34.0-67.9) % Immature Gran % (Auto) 0.4 (0.001-0.429) % Nucleat RBC Rel Count 0.0 (0.00-0.2) % Eos # (Auto) 0.04 (0.04-0.54) x10^3/uL Immature Gran # (Auto) 0.05 H (0.001-0.031) x10^3u/L Absolute Lymphs (auto) 2.77 (1.32-3.57) x10^3/uL Absolute Monos (auto) 0.62 (0.30-0.82) x10^3/uL Absolute Nucleated RBC 0.00 (0.00-0.012) x10^3u/L Lymphocytes % 20.0 L (21.8-53.1) % Monocytes % 4.5 L (5.3-12.2) % Eosinophils % 0.3 L (0.8-7.0) % Basophils % 0.6 (0.2-1.2) % Absolute Granulocytes 10.29 H (1.78-5.38) x10^3/uL Basophils # 0.09 H (0.01-0.08) x10^3/uL Sodium (135-145) mmol/L Potassium (3.5-5.1) mmol/L Chloride (98-107) mmol/L Carbon Dioxide (22-30) mmol/L Anion Gap (5-15) MEQ/L BUN (9-20) mg/dL Creatinine (0.66-1.25) mg/dL Estimated GFR ML/MIN Glucose (74-106) mg/dL Lactic Acid (0.4-2.0) Calcium (8.4-10.2) mg/dL Magnesium (1.6-2.3) mg/dL Total Bilirubin (0.2-1.3) mg/dL AST (17-59) U/L ALT (0-50) U/L Alkaline Phosphatase (38-126) U/L Troponin I (0.000-0.033) ng/mL NT-Pro-B Natriuret Pep (<300) pg/mL Serum Total Protein (6.3-8.2) g/dL Albumin (3.5-5.0) g/dL Urine Color (Yellow) Urine Appearance (Clear) Urine pH (4.6-8.0) Ur Specific [place] (1.005-1.030) Urine Protein (Negative) Urine Glucose (UA) (Negative) mg/dL Urine Ketones (Negative) Urine Blood (Negative) Urine Nitrite (Negative) Urine Bilirubin (Negative) Urine Urobilinogen (0.2) mg/dL Ur Leukocyte Esterase (Negative) U Hyaline Cast (Auto) (0-2) /LPF Urine Microscopic RBC (0-5) /HPF Urine Microscopic WBC (0-5) /HPF Ur Epithelial Cells (None Seen) /HPF Urine Bacteria (None Seen) /HPF Urine Culture Reflexed (NO) Urine Opiates Level (NEGATIVE) Ur Methadone (NEGATIVE) Urine Barbiturates (NEGATIVE) Ur Phencyclidine (PCP) (NEGATIVE) Urine Amphetamine (NEGATIVE) U Benzodiazepine Level (NEGATIVE) Urine Cocaine (NEGATIVE) Urine Marijuana (THC) (NEGATIVE) Ethyl Alcohol (0-10) mg/dL - Progress Progress: improved Progress Note: Case discussed with teleneurologist who advises CTA head neck. Followed by admission for MRI. He advises permissive hypertension. Continue aspirin. He advises that the current CT finding is unrelated to the patient's current symptomology. I spoke to neurologist at 10:17 PM neurologist advised CTA head neck. CTA head neck completed. No acute pathology observed. 74-year-old male presents to our ED for evaluation of dizziness and syncope. Patient was positive for amphetamine. Patient advised that he smoked meth approximately 2 days ago right around the time that symptoms started. This information was not divulged to us upon his arrival. Physical exam otherwise nonremarkable. Laboratory workup reveals a lactic acidosis of 2.1. Acute renal injury. Thrombocytosis. UA significant for UTI. Case discussed with hospitalist who accepts admission to observation at 1:12 AM. Plan of care discussed with patient. He agrees to admission at [facility] for further evaluation and treatment. Portions of this note were created with voice recognition technology. There may be grammatical, spelling, punctuation or sound alike errors Complexity of problem addressed is moderate acute complicated. No critical care time. Complex of data reviewed and analyzed is extensive. Test ordered test reviewed results analyzed and correlated clinically with history and physical exam. Risk of complication and or risk of morbidity/mortality of patient management is high. Patient requires hospitalization for further evaluation and treatment. Vital stable. Time spent admit patient approximately 15 minutes. Plan of care established for shared decision making. No social determinants of health present to impede follow-up. Portions of this note were created with voice recognition technology. There may be grammatical, spelling, punctuation or sound alike errors 03/26/24 22:18 Counseled pt/family regarding: lab results, diagnosis, rad results - Departure Departure Disposition: Observation Clinical Impression: Dizziness, Lactic acidosis, UTI (urinary tract infection), Thrombocytosis, Acute renal injury, Amphetamine use Condition: Stable Critical Care Time: No Referrals: KRISTIN TAVERAS MD [Primary Care Provider] - Follow up/PCP as directed Additional Instructions: Discharge/Care Plan ESTEVAN MULLEN was seen on 03/26/24 in the Emergency Room. The patient was counseled regarding Diagnosis,Lab results, Imaging studies, need for follow up and when to return to the Emergency Room. Prescriptions given: Discharge Note I have spoken with the patient and/or caregivers. I have explained the patient's condition, diagnosis and treatment plan based on the information available to me at this time. I have answered the patient's and/or caregiver's questions and addressed any concerns. The patient and/or caregivers have as good understanding of the patient's diagnosis, condition and treatment plan as can be expected at this point. The vital signs have been stable. The patient's condition is stable and appropriate for discharge from the emergency department. The patient will pursue further outpatient evaluation with the primary care physician or other designated or consulting physician as outlined in the disc harge instructions. The patient and/or caregivers are agreeable to this plan of care and follow-up instructions have been explained in detail. The patient and/or caregivers have received these instruction. The patient/and or caregivers are aware that any significant change in condition or worsening of symptoms should prompt an immediate return to this or the closest emergency department or call 911.
[2024-03-26 20:21] LABS: Absolute Neutrophil Ct (ANC) 10.29 x10^3/uL (1.78-5.38); BASOPHIL % 0.6 % (0.2-1.2); Basophil (Absolute #) 0.09 x10^3/uL (0.01-0.08); Eosinophil % 0.3 % (0.8-7.0); Eosinophil (Absolute #) 0.04 x10^3/uL (0.04-0.54); Hematocrit 29.2 % (40.1-51.0); Hemoglobin 10.1 g/dL (13.7-17.5); IMMATURE GRAN # 0.05 x10^3u/L (0.001-0.031); IMMATURE GRAN % 0.4 % (0.001-0.429); Lymphocyte (Absolute #) 2.77 x10^3/uL (1.32-3.57); Mean Cell Volume 86.6 fL (79.0-92.2); Mean Corpuscular Hgb Concent. 34.6 g/dL (32.3-36.5); Mean Platelet Volume 9.6 fL (9.4-12.4); Monocyte (Absolute #) 0.62 x10^3/uL (0.30-0.82); Monocytes % 4.5 % (5.3-12.2); Neutrophil % 74.2 % (34.0-67.9); Platelet Count 418 x10^3/uL (163-337); Red Blood Count 3.37 x10^6/uL (4.63-6.08); Red Cell Distribution Width 13.4 % (11.6-14.4); White Blood Count 13.9 x10^3/uL (4.23-9.07)
[2024-03-26] MEDS ORDERED: Sodium Chloride 0.9% 1000 ML 1,000 ML ONE (20:21)
[2024-03-26] MEDS: Sodium Chloride 0.9% 1000 ML 1,000 ML IV SCH (20:23)
[2024-03-26 20:30] LABS: ALBUMIN 3.8 g/dL (3.5-5.0); ALKALINE PHOSPHATASE 71 U/L (38-126); ANION GAP 11.2 MEQ/L (5-15); BLOOD UREA NITROGEN 69 mg/dL (9-20); CHLORIDE 107 mmol/L (98-107); Calcium 8.9 mg/dL (8.4-10.2); Carbon Dioxide 21 mmol/L (22-30); Creatinine 1 1.32 mg/dL (0.66-1.25); ETHYL ALCOHOL < 10 mg/dL (0-10); Glucose 111 mg/dL (74-106); MAGNESIUM 2.1 mg/dL (1.6-2.3); Potassium 5.1 mmol/L (3.5-5.1); SGOT/AST 23 U/L (17-59); SGPT/ALT 16 U/L (0-50); SODIUM 134 mmol/L (135-145); Total Protein 6.6 g/dL (6.3-8.2)
[2024-03-26 20:41] LABS: TROPONIN 0.016 ng/mL (0.000-0.033)
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
[2024-03-26] MEDS ORDERED: BABY ASPIRIN 81 MG CHEW ONE (22:32)
[2024-03-26] MEDS: BABY ASPIRIN 81 MG CHEW PO ONE (22:34)
[2024-03-26 22:36] LABS: Appearance Clear (Clear); Bacteria None Seen /HPF (None Seen); Bilirubin Negative (Negative); Blood Negative (Negative); Epithelial Cells None Seen /HPF (None Seen); Glucose, Urine Negative (Negative); Hyaline Casts NONE SEEN /LPF (0-2); Ketones Negative (Negative); Leukocyte Esterase Small (Negative); Nitrite Negative (Negative); Protein,Urine Dip Negative (Negative); RBC 0-2 /HPF (0-5); Urobilinogen 0.2 mg/dL (0.2)
[2024-03-26 22:51] LABS: Barbiturate,Urine NEGATIVE (NEGATIVE); Benzodiazepine,Urine NEGATIVE (NEGATIVE); Cocaine,Urine NEGATIVE (NEGATIVE); Methadone,Urine NEGATIVE (NEGATIVE); Opiate,Urine NEGATIVE (NEGATIVE); PCP,Urine NEGATIVE (NEGATIVE); THC,Urine NEGATIVE (NEGATIVE)
[2024-03-26 23:30] LABS: Amphetamine,Urine POSITIVE (NEGATIVE)
--- NOTE | 2024-03-27 00:32 | XRAY ---
CLINICAL HISTORY: dizziness COMPARISON: None. TECHNIQUE: Contrast enhanced thin slice CT angiography scan of the cerebral vessels was performed with intravenous contrast. Angiographic images were processed, 3D MIP images were acquired for interpretation. Contiguous axial images were obtained. Reformatted coronal and sagittal images were also reviewed. If IV contrast material had not been administered, the likelihood of detecting abnormalities relevant to the patient's condition would have been substantially decreased. CT scan was performed according to ALARA (as low as reasonably achievable). FINDINGS: Bilateral internal carotid arteries show normal course, calibre and opacification in the canalicular and cavernous part. Their division into the anterior cerebral artery and middle cerebral artery is defined. A1, A2 segments are normal on both the sides. M1, M2 segments are normal on both the sides. Right vertebral artery is hypoplastic. Left vertebral artery is normal in course and caliber. Basilar artery shows normal course, caliber and opacification. Bilateral P1 and P2 segments are normal. origin of the right posterior cerebral artery is noted. Visualized venous structures show normal opacification. No evidence of intracranial aneurysm or AV malformation is seen. IMPRESSION: 1. No evidence of stenosis or aneurysm. No evidence of dissection. 2. Hypoplastic right vertebral artery. 3. origin of right posterior cerebral artery. Electronically Signed by: Yeison Meng MD. (03/27/2024 00:28:02 EST)
--- NOTE | 2024-03-27 00:40 | XRAY ---
CLINICAL HISTORY: dizziness COMPARISON: None. TECHNIQUE: Contrast enhanced thin slice CT angiography scan of the carotid vessels was performed with intravenous contrast. Angiographic images were processed, 3D MIP images were acquired for interpretation. Contiguous axial images were obtained. Reformatted coronal and sagittal images were also reviewed. If IV contrast material had not been administered, the likelihood of detecting abnormalities relevant to the patient's condition would have been substantially decreased. CT scan was performed according to ALARA (as low as reasonably achievable). FINDINGS: Included great vessels of the aortic arch are grossly unremarkable. Small calcified plaque is noted at the level of left carotid bulb causing mild (hemodynamically insignificant) luminal stenosis. Right vertebral artery is hypoplastic. Common carotid artery, carotid Bulb, internal carotid artery, and origin of the external carotid artery are well opacified. Vertebral arteries are well opacified. Jugular veins are well opacified. Suspicious subpleural reticulation/interstitial thickening is noted involving the visualized portions of bilateral upper lobes. Few paraseptal emphysematous changes are noted in bilateral upper lobe. Thyroid gland appears unremarkable. IMPRESSION: 1. No evidence of stenosis or aneurysm. No evidence of dissection. 2. Hypoplastic right vertebral artery. 3. Small calcified plaque involving the left carotid bulb causing mild luminal stenosis. Distal perfusion is well seen. 4. Suspicious subpleural reticulation/interstitial thickening is noted involving the visualized portions of bilateral upper lobes. HRCT chest is suggested for better evaluation if clinically indicated. 5. Few paraseptal emphysematous changes are noted in bilateral upper lobe. Electronically Signed by: Yeison Meng MD. (03/27/2024 00:36:01 EST)
[2024-03-27] MEDS ORDERED: ROCEPHIN 1 GM / 100 ML NaCl 1 GM/100 ML IVPB IV ONE (00:57)
[2024-03-27] MEDS: ROCEPHIN 1 GM / 100 ML NaCl 1 GM/100 ML IVPB IV ONE (00:59)
[2024-03-27] MEDS ORDERED: TYLENOL 325 MG PO PRN (03:04)
[2024-03-27] MEDS ORDERED: Zofran 4 MG/2 ML VIAL IV PRN (03:04)
[2024-03-27] MEDS ORDERED: Sodium Chloride 0.9% 1000 ML 1,000 ML ONE (03:11)
[2024-03-27] MEDS: Sodium Chloride 0.9% 1000 ML 1,000 ML IV SCH (03:11)
[2024-03-27] MEDS ORDERED: ROCEPHIN 1 GM / 100 ML NaCl 1 GM/100 ML IVPB IV SCH (03:15)
--- NOTE | 2024-03-27 03:20 | PCM.HP ---
History of Present Illness - Chief Complaint Chief Complaint: SYNCOPE, COLLAPSE, DIZZINESS, METHAMPHETAMINE USE, UTI Date: 03/27/24 History of Present Illness: is a 74 year old male with a history of hypertension and methamphetamine use history who presented to the ED for evaluation of fatigue and dizziness. The patient stated that his symptoms had been ongoing for the past 2 to 3 days. Patient reports that he woke up on the floor this morning with a small right sided head abrasion. He denied neck pain. The patient told his brother about how he had been feeling and then his brother advised him to come to the ED for an evaluation. Patient denies history of prior syncope. He did report to the ED that around the time of symptom onset, he had smoked methamphetamine. He denies any visual disturbances, weakness or numbness, - Review of Systems Constitutional: No Symptoms Eyes: No Symptoms Ears, Nose, & Throat: No Symptoms Respiratory: No Symptoms Cardiac: No Symptoms Abdominal/Gastrointestinal: No Symptoms Genitourinary Symptoms: No Symptoms Musculoskeletal: No Symptoms Skin: No Symptoms Neurological: Dizziness Psychological: No Symptoms Endocrine: No Symptoms Hematologic/Lymphatic: No Symptoms Immunological/Allergic: No Symptoms All Other Systems: Reviewed and Negative Medications & Allergies Home Medications: Home Medication List Aspirin EC 81 mg [Ecotrin 81 mg] 81 mg PO DAILY 03/26/24 [History Confirmed 03/27/24] Metoprolol Succinate 50 mg [Toprol Xl 50 MG] 50 mg PO DAILY 03/26/24 [History Confirmed 03/27/24] Allergies/Adverse Reactions: Allergies Allergy/AdvReac Type Severity Reaction Status Date / Time No Known Drug Allergies Allergy Verified 03/27/24 02:02 - Past Medical History Past Medical History: Yes Neurological History: Seizures ENT History: No Pertinent History Cardiac History: High Cholesterol, Hypertension Respiratory History: No Pertinent History Endocrine Medical History: No Pertinent History Musculoskelatal History: No Pertinent History GI Medical History: No Pertinent History History: No Pertinent History Pyscho-Social History: Anxiety Male Reproductive Disorders: No Pertinent History - Past Surgical History Past Surgical History: No Neuro Surgical History: No Pertinent History Cardiac History: No Pertinent History Respiratory Surgery: No Pertinent History GI Surgical History: No Pertinent History Genitourinary Surgical Hx: No Pertinent History Musculskeletal Surgical Hx: No Pertinent History Male Surgical History: No Pertinent History Significant Family History: no pertinent family hx Family History: No family history of hereditary neurological conditions. - Social History Smoking Status: Current every day smoker How long have you smoked: 55 Exposure to second hand smoke: Yes Alcohol: Rarely Drug Use: marijuana, methamphetamines - Social Determinants of Health Will the patient participate in the screening: Yes Do you worry about a steady place to live?: No Do you have any problems with any of the following?: No known problems In the past 12 months,have you had to go without utilities?: No Have you or anyone in your house had to go without enough: No Transportation Issues: No Has anyone in your support network made you feel unsafe?: No Does the patient want assistance with any of the above?: No - Physical Exam Vital Signs: Vital Signs - 24 hr Temp Pulse Resp BP BP Pulse Ox 03/27/24 03:00 92 L 03/27/24 02:00 82 03/27/24 01:49 97.9 F 102 H 20 136/63 100 03/27/24 01:00 102 H 16 150/86 100 03/27/24 00:30 120/61 99 03/27/24 00:00 95 H 16 142/74 100 03/26/24 23:30 131/63 99 03/26/24 23:16 102 H 14 142/111 100 03/26/24 22:30 981 H 14 140/84 98 03/26/24 22:01 101 H 17 165/109 100 03/26/24 21:31 104 H 23 189/86 100 03/26/24 21:01 100 H 18 163/74 100 03/26/24 20:52 120/85 100 03/26/24 20:31 96 H 18 99 03/26/24 20:16 100 03/26/24 20:09 97.4 F 97 H 18 147/87 100 03/26/24 20:02 132/72 03/26/24 20:00 99 H 18 133/106 100 03/26/24 19:30 95 H 16 147/87 99 General Appearance: no apparent distress, alert Neurologic Exam: alert, oriented x 3, cooperative, 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 as tested, normal mood/affect, nml cerebellar function Eye Exam: PERRL/EOMI, eyes nml inspection Ears, Nose, Throat Exam: normal ENT inspection Neck Exam: normal inspection, non-tender, supple, full range of motion Respiratory Exam: normal breath sounds, lungs clear, other Cardiovascular Exam: regular rate/rhythm Gastrointestinal/Abdomen Exam: soft, normal bowel sounds Back Exam: normal range of motion Extremity Exam: normal inspection, normal range of motion Skin Exam: normal color Results - Labs Lab/Micro Results: Lab Results-Last 24 Hours 03/26/24 03/26/24 03/26/24 Range/Units 19:35 19:35 19:35 WBC 13.9 H (4.23-9.07) x10^3/uL RBC 3.37 L (4.63-6.08) x10^6/uL Hgb 10.1 L (13.7-17.5) g/dL Hct 29.2 L (40.1-51.0) % MCV 86.6 (79.0-92.2) fL MCH 30.0 (25.7-32.2) pg MCHC 34.6 (32.3-36.5) g/dL RDW 13.4 (11.6-14.4) % Plt Count 418 H (163-337) x10^3/uL MPV 9.6 (9.4-12.4) fL Gran % 74.2 H (34.0-67.9) % Immature Gran % (Auto) 0.4 (0.001-0.429) % Nucleat RBC Rel Count 0.0 (0.00-0.2) % Eos # (Auto) 0.04 (0.04-0.54) x10^3/uL Immature Gran # (Auto) 0.05 H (0.001-0.031) x10^3u/L Absolute Lymphs (auto) 2.77 (1.32-3.57) x10^3/uL Absolute Monos (auto) 0.62 (0.30-0.82) x10^3/uL Absolute Nucleated RBC 0.00 (0.00-0.012) x10^3u/L Lymphocytes % 20.0 L (21.8-53.1) % Monocytes % 4.5 L (5.3-12.2) % Eosinophils % 0.3 L (0.8-7.0) % Basophils % 0.6 (0.2-1.2) % Absolute Granulocytes 10.29 H (1.78-5.38) x10^3/uL Basophils # 0.09 H (0.01-0.08) x10^3/uL Sodium 134 L (135-145) mmol/L Potassium 5.1 (3.5-5.1) mmol/L Chloride 107 (98-107) mmol/L Carbon Dioxide 21 L (22-30) mmol/L Anion Gap 11.2 (5-15) MEQ/L BUN 69 H (9-20) mg/dL Creatinine 1.32 H (0.66-1.25) mg/dL Estimated GFR 57.0 ML/MIN Glucose 111 H (74-106) mg/dL Lactic Acid (0.4-2.0) Calcium 8.9 (8.4-10.2) mg/dL Magnesium 2.1 (1.6-2.3) mg/dL Total Bilirubin 0.50 (0.2-1.3) mg/dL AST 23 (17-59) U/L ALT 16 (0-50) U/L Alkaline Phosphatase 71 (38-126) U/L Troponin I 0.016 (0.000-0.033) ng/mL NT-Pro-B Natriuret Pep 132 (<300) pg/mL Serum Total Protein 6.6 (6.3-8.2) g/dL Albumin 3.8 (3.5-5.0) g/dL Urine Color (Yellow) Urine Appearance (Clear) Urine pH (4.6-8.0) Ur Specific [place] (1.005-1.030) Urine Protein (Negative) Urine Glucose (UA) (Negative) mg/dL Urine Ketones (Negative) Urine Blood (Negative) Urine Nitrite (Negative) Urine Bilirubin (Negative) Urine Urobilinogen (0.2) mg/dL Ur Leukocyte Esterase (Negative) U Hyaline Cast (Auto) (0-2) /LPF Urine Microscopic RBC (0-5) /HPF Urine Microscopic WBC (0-5) /HPF Ur Epithelial Cells (None Seen) /HPF Urine Bacteria (None Seen) /HPF Urine Culture Reflexed (NO) Urine Opiates Level (NEGATIVE) Ur Methadone (NEGATIVE) Urine Barbiturates (NEGATIVE) Ur Phencyclidine (PCP) (NEGATIVE) Urine Amphetamine (NEGATIVE) U Benzodiazepine Level (NEGATIVE) Urine Cocaine (NEGATIVE) Urine Marijuana (THC) (NEGATIVE) Ethyl Alcohol < 10 (0-10) mg/dL 03/26/24 03/26/24 03/26/24 Range/Units 20:16 22:25 22:25 WBC (4.23-9.07) x10^3/uL RBC (4.63-6.08) x10^6/uL Hgb (13.7-17.5) g/dL Hct (40.1-51.0) % MCV (79.0-92.2) fL MCH (25.7-32.2) pg MCHC (32.3-36.5) g/dL RDW (11.6-14.4) % Plt Count (163-337) x10^3/uL MPV (9.4-12.4) fL Gran % (34.0-67.9) % Immature Gran % (Auto) (0.001-0.429) % Nucleat RBC Rel Count (0.00-0.2) % Eos # (Auto) (0.04-0.54) x10^3/uL Immature Gran # (Auto) (0.001-0.031) x10^3u/L Absolute Lymphs (auto) (1.32-3.57) x10^3/uL Absolute Monos (auto) (0.30-0.82) x10^3/uL Absolute Nucleated RBC (0.00-0.012) x10^3u/L Lymphocytes % (21.8-53.1) % Monocytes % (5.3-12.2) % Eosinophils % (0.8-7.0) % Basophils % (0.2-1.2) % Absolute Granulocytes (1.78-5.38) x10^3/uL Basophils # (0.01-0.08) x10^3/uL Sodium (135-145) mmol/L Potassium (3.5-5.1) mmol/L Chloride (98-107) mmol/L Carbon Dioxide (22-30) mmol/L Anion Gap (5-15) MEQ/L BUN (9-20) mg/dL Creatinine (0.66-1.25) mg/dL Estimated GFR ML/MIN Glucose (74-106) mg/dL Lactic Acid 2.1 H (0.4-2.0) Calcium (8.4-10.2) mg/dL Magnesium (1.6-2.3) mg/dL Total Bilirubin (0.2-1.3) mg/dL AST (17-59) U/L ALT (0-50) U/L Alkaline Phosphatase (38-126) U/L Troponin I (0.000-0.033) ng/mL NT-Pro-B Natriuret Pep (<300) pg/mL Serum Total Protein (6.3-8.2) g/dL Albumin (3.5-5.0) g/dL Urine Color Yellow (Yellow) Urine Appearance Clear (Clear) Urine pH 5.0 (4.6-8.0) Ur Specific [place] 1.020 (1.005-1.030) Urine Protein Negative (Negative) Urine Glucose (UA) Negative (Negative) mg/dL Urine Ketones Negative (Negative) Urine Blood Negative (Negative) Urine Nitrite Negative (Negative) Urine Bilirubin Negative (Negative) Urine Urobilinogen 0.2 (0.2) mg/dL Ur Leukocyte Esterase Small A (Negative) U Hyaline Cast (Auto) NONE SEEN (0-2) /LPF Urine Microscopic RBC 0-2 (0-5) /HPF Urine Microscopic WBC 6-10 A (0-5) /HPF Ur Epithelial Cells None Seen (None Seen) /HPF Urine Bacteria None Seen (None Seen) /HPF Urine Culture Reflexed NO (NO) Urine Opiates Level NEGATIVE (NEGATIVE) Ur Methadone NEGATIVE (NEGATIVE) Urine Barbiturates NEGATIVE (NEGATIVE) Ur Phencyclidine (PCP) NEGATIVE (NEGATIVE) Urine Amphetamine POSITIVE A (NEGATIVE) U Benzodiazepine Level NEGATIVE (NEGATIVE) Urine Cocaine NEGATIVE (NEGATIVE) Urine Marijuana (THC) NEGATIVE (NEGATIVE) Ethyl Alcohol (0-10) mg/dL 03/27/24 Range/Units 00:15 WBC (4.23-9.07) x10^3/uL RBC (4.63-6.08) x10^6/uL Hgb (13.7-17.5) g/dL Hct (40.1-51.0) % MCV (79.0-92.2) fL MCH (25.7-32.2) pg MCHC (32.3-36.5) g/dL RDW (11.6-14.4) % Plt Count (163-337) x10^3/uL MPV (9.4-12.4) fL Gran % (34.0-67.9) % Immature Gran % (Auto) (0.001-0.429) % Nucleat RBC Rel Count (0.00-0.2) % Eos # (Auto) (0.04-0.54) x10^3/uL Immature Gran # (Auto) (0.001-0.031) x10^3u/L Absolute Lymphs (auto) (1.32-3.57) x10^3/uL Absolute Monos (auto) (0.30-0.82) x10^3/uL Absolute Nucleated RBC (0.00-0.012) x10^3u/L Lymphocytes % (21.8-53.1) % Monocytes % (5.3-12.2) % Eosinophils % (0.8-7.0) % Basophils % (0.2-1.2) % Absolute Granulocytes (1.78-5.38) x10^3/uL Basophils # (0.01-0.08) x10^3/uL Sodium (135-145) mmol/L Potassium (3.5-5.1) mmol/L Chloride (98-107) mmol/L Carbon Dioxide (22-30) mmol/L Anion Gap (5-15) MEQ/L BUN (9-20) mg/dL Creatinine (0.66-1.25) mg/dL Estimated GFR ML/MIN Glucose (74-106) mg/dL Lactic Acid (0.4-2.0) Calcium (8.4-10.2) mg/dL Magnesium (1.6-2.3) mg/dL Total Bilirubin (0.2-1.3) mg/dL AST (17-59) U/L ALT (0-50) U/L Alkaline Phosphatase (38-126) U/L Troponin I < 0.012 (0.000-0.033) ng/mL NT-Pro-B Natriuret Pep (<300) pg/mL Serum Total Protein (6.3-8.2) g/dL Albumin (3.5-5.0) g/dL Urine Color (Yellow) Urine Appearance (Clear) Urine pH (4.6-8.0) Ur Specific [place] (1.005-1.030) Urine Protein (Negative) Urine Glucose (UA) (Negative) mg/dL Urine Ketones (Negative) Urine Blood (Negative) Urine Nitrite (Negative) Urine Bilirubin (Negative) Urine Urobilinogen (0.2) mg/dL Ur Leukocyte Esterase (Negative) U Hyaline Cast (Auto) (0-2) /LPF Urine Microscopic RBC (0-5) /HPF Urine Microscopic WBC (0-5) /HPF Ur Epithelial Cells (None Seen) /HPF Urine Bacteria (None Seen) /HPF Urine Culture Reflexed (NO) Urine Opiates Level (NEGATIVE) Ur Methadone (NEGATIVE) Urine Barbiturates (NEGATIVE) Ur Phencyclidine (PCP) (NEGATIVE) Urine Amphetamine (NEGATIVE) U Benzodiazepine Level (NEGATIVE) Urine Cocaine (NEGATIVE) Urine Marijuana (THC) (NEGATIVE) Ethyl Alcohol (0-10) mg/dL - Radiology Impressions Radiology Exams & Impressions: Radiology Procedures Category Date Time Status CT ANGIOGRAPHY NECK [CT] Stat Exams 03/26/24 22:19 Completed CTA HEAD W AND/OR WO CONTRAST [CT] Stat Exams 03/26/24 22:19 Completed ECHO W/2D AND DOPPLER [US] Routine Exams 03/27/24 03:02 Ordered HEAD WITHOUT CONTRAST [CT] Stat Exams 03/26/24 19:42 Taken MRI BRAIN W & W/O CONTRAST [MRI] Routine Exams 03/27/24 03:03 Ordered Assessment/Plan (1) Syncope and collapse Current Visit: Yes Status: Acute Assessment & Plan: Check ECHO and MRI brain. PT eval. Code(s): R55 - SYNCOPE AND COLLAPSE (2) Dizziness Current Visit: Yes Status: Acute Assessment & Plan: Appreciate teleneuro consult.Will obtain MRI brain. AM orthostatics. Will check ECHO. IV fluids for dehydration. Code(s): R42 - DIZZINESS AND GIDDINESS (3) Essential hypertension Current Visit: Yes Status: Acute Assessment & Plan: Monitor BP on home regimen. Code(s): I10 - ESSENTIAL (PRIMARY) HYPERTENSION (4) Leukocytosis Current Visit: No Status: Acute Assessment & Plan: Likely due to UTI and dehydration. Recheck WBC. Code(s): D72.829 - ELEVATED WHITE BLOOD CELL COUNT, UNSPECIFIED (5) UTI (urinary tract infection) Current Visit: Yes Status: Acute Assessment & Plan: IV antibiotics. Follow up culture. Code(s): N39.0 - URINARY TRACT INFECTION, SITE NOT SPECIFIED (6) Acute renal injury Current Visit: Yes Status: Acute Assessment & Plan: IV fluids. BARBARA likely due to dehydration. Code(s): N17.9 - ACUTE KIDNEY FAILURE, UNSPECIFIED (7) Amphetamine use Current Visit: Yes Status: Acute Code(s): F15.90 - OTHER STIMULANT USE, UNSPECIFIED, UNCOMPLICATED Telemedicine Encounter - Telemedicine Encounter Telemedicine Encounter: "The entirety of this encounter was performed via Telemedicine" This visit was performed using real-time audio and video connection between my location and thepatients locationwith the assistance of a surrogateat the patients location. Written or verbal consent was obtained from the patient/guardian to perform this visit [facility] technology. Any patient questions regarding the telemedicine interaction were answered.
[2024-03-27 05:27] LABS: Absolute Neutrophil Ct (ANC) 6.57 x10^3/uL (1.78-5.38); BASOPHIL % 0.7 % (0.2-1.2); Basophil (Absolute #) 0.08 x10^3/uL (0.01-0.08); Eosinophil % 2.1 % (0.8-7.0); Eosinophil (Absolute #) 0.24 x10^3/uL (0.04-0.54); Hematocrit 24.3 % (40.1-51.0); Hemoglobin 8.3 g/dL (13.7-17.5); IMMATURE GRAN # 0.05 x10^3u/L (0.001-0.031); IMMATURE GRAN % 0.4 % (0.001-0.429); Lymphocyte (Absolute #) 3.78 x10^3/uL (1.32-3.57); Mean Cell Volume 87.1 fL (79.0-92.2); Mean Corpuscular Hemoglobin 29.7 pg (25.7-32.2); Mean Corpuscular Hgb Concent. 34.2 g/dL (32.3-36.5); Mean Platelet Volume 9.4 fL (9.4-12.4); Monocyte (Absolute #) 0.74 x10^3/uL (0.30-0.82); Monocytes % 6.5 % (5.3-12.2); Neutrophil % 57.3 % (34.0-67.9); Platelet Count 345 x10^3/uL (163-337); Red Blood Count 2.79 x10^6/uL (4.63-6.08); Red Cell Distribution Width 13.6 % (11.6-14.4); White Blood Count 11.5 x10^3/uL (4.23-9.07)
[2024-03-27 06:21] LABS: ANION GAP 9.3 MEQ/L (5-15); Calcium 7.6 mg/dL (8.4-10.2); Creatinine 1 1.32 mg/dL (0.66-1.25); Potassium 4.3 mmol/L (3.5-5.1)
--- NOTE | 2024-03-27 08:38 | XRAY ---
Indication: Dizziness. Multiple contiguous axial images obtained through the head without contrast. Comparison: December 23, 2022 Again age-appropriate global atrophy. New remote lacunar infarct right thalamus. No acute intracranial hemorrhage, abnormal extra-axial fluid collection, or mass effect. Fourth ventricle is midline without hydrocephalus. Nicholas-white matter differentiation preserved. Bony calvarium intact. Visualized paranasal sinuses and mastoid air cells are clear. Impression: New remote lacunar infarct right thalamus. No acute intracranial abnormalities.
[2024-03-27] MEDS: ECOTRIN 81 MG PO SCH (09:20)
[2024-03-27] MEDS: ENOXAPARIN SODIUM SQ SCH (09:20)
[2024-03-27] MEDS: Toprol Xl 50 MG PO SCH (09:20)
[2024-03-27] MEDS: Acidophilus TABLET PO SCH (09:20)
--- NOTE | 2024-03-27 12:18 | XRAY ---
Indication: Syncope. Acute dizziness. Negative CT/CTA head and CTA neck exams. Sagittal, coronal, and axial MRI brain performed using pre and post T1, T2, FLAIR, diffusion, and ADC sequences. 15 cc Dotarem contrast used. Comparison: None Age-appropriate global atrophy with minimal periventricular degenerative micro-ischemia signal bilaterally. No acute intracranial hemorrhage, abnormal extra-axial fluid collection, or mass effect. Diffusion images are negative for restricted signal. Following gadolinium, there is no abnormal enhancing intra or extra-axial mass. Fourth ventricle is midline without hydrocephalus. 7/8 cranial nerve complex bilaterally symmetric. Normal flow-void signal within the major intracervical circulation. Normal appearing craniocervical junction and sella turcica. Minimal mucosal thickening both ethmoid sinuses. Impression: 1. Atrophy and degenerative micro-ischemia within normal limits. 2. No acute intracranial abnormalities or evidence for evolving large vessel territorial stroke. 3. Negative contrast exam. 4. Minimal paranasal sinus disease.
--- NOTE | 2024-03-27 12:56 | XRAY ---
Indication: Suspicious subpleural reticulation. 1.3 mm thin axial images obtained through the chest at 10 mm increments with the patient left lateral and right lateral decubitus position using high-resolution protocol. Then conventional CT chest performed without contrast. Comparison: December 20, 2022 High-resolution images demonstrates moderate diffuse bilateral peripheral fibrosis/scarring grossly unchanged. No ground glass opacities, bronchiectasis, or evidence for interstitial lung disease. Stable incidental small left upper lobe calcified granuloma. No infiltrate, consolidation, or effusion. Heart not enlarged again with minimal coronary calcifications. Aorta again demonstrates minimal arch calcifications without aneurysm. No pathologic mediastinal lymphadenopathy. Bony thorax intact again with minimal degenerative changes throughout spine, minimal remote appearing T6-T9 compression fractures, and remote left 4-7 rib fractures. Limited upper abdomen again demonstrates splenic calcified granulomas. There is contrast in system from recent CTA exam. Impression: Again chronic findings including diffuse pulmonary fibrosis/scarring, arteriosclerotic disease, chronic bony findings, and old granulomatous disease. Remaining CT chest high-resolution exam is negative.
--- NOTE | 2024-03-27 14:16 | PCM.NOTE ---
Date and Time: 03/27/24 1411 Subjective Assessment: Neurology was reconsulted today as the patient had an episode around 12:35 PM when he called the nurse for help and he told her that he was having involuntary shakiness of his whole body. It lasted for about a minute. Patient did not pass out or lost awareness. he has a history of seizures in the past many years ago about 10 to 12 years ago. He has not been on any seizure medication. It is unclear whether the episode was seizures. He came to the hospital last night because of the dizziness and was found to have UTI and was positive for amphetamines. Neurological work up including getting a brain MRI which was negative for acute process. I personally with the images. He also got a CT angiogram head and neck which did not show any evidence of major vascular occlusion. It did show some degree of carotid stenosis. Temperature 97.9F pulse rate 83 respiratory rate of 22 oxygen saturation of 98% blood pressure 111 / 65 Labs reviewed which showed the WBC of 11.5 hemoglobin 8.3 hematocrit 24.3 platelet count of 345 Sodium 135 potassium 4.3 chloride 107 bicarb 23 BUN 52 creatinine 1.32 E 23 alt 16 tox screen positive for amphetamines Impression: 1. Atrophy and degenerative micro-ischemia within normal limits. 2. No acute intracranial abnormalities or evidence for evolving large vessel territorial stroke. 3. Negative contrast exam. 4. Minimal paranasal sinus disease. IMPRESSION: 1. No evidence of stenosis or aneurysm. No evidence of dissection. 2. Hypoplastic right vertebral artery. 3. Small calcified plaque involving the left carotid bulb causing mild luminal stenosis. Distal perfusion is well seen. 4. Suspicious subpleural reticulation/interstitial thickening is noted involving the visualized portions of bilateral upper lobes. HRCT chest is suggested for better evaluation if clinically indicated. 5. Few paraseptal emphysematous changes are noted in bilateral upper lobe. 12 Point ROS is -ve unless stated Physical Exam: Constitutional: Gen: NAD, pleasant HEENT: NC/AT Neurologic Exam: Higher Functions: AA&Ox3; Tracks; Regards Follows simple and complex commands Communicates appropriately Language : Comprehension is intact; no aphasia; no dysarthria; repetition is intact; naming is normal; scene description is normal CN II : Visual garsia are full; CN III, IV, : EOMI; CN V : Facial sensation is full and symmetric CN VII : Facial movement is full and symmetric CN VIII : hearing intact BL CN IX, X : LAUREL CN XI : SCM 5/5 BL CN XII : Tongue protrudes midline without fasciculations Sensory : intact to soft touch Motor : Strength 5/5 UE and LE BL Deep tendon reflexes : LAUREL Plantar response : LAUREL Fisvsw-by-Uvxc : normal BL, no dysmetria Abnormal Movements : none seen Gait and Station : Deferred Assessment: 74 year old male came to the hospital for dizziness and fatigue. 1-Concern for seizure: neurology was reconstituted today for concern for seizures PerRN, he told her that he was having involuntary movement of all body which lasted for about a minute. he has a remote history of seizures about 10 to 12 years ago. Not on a seizure medication currently. It is unclear whether the episode was seizure or not. He was also found to have a UTI and was positive for amphetamines. He's also positive for orthostasis getting treated for UTI. Labs and vitals reviewed. He also got a brain MRI which was negative for acute process it showed chronic and old findings. Angiogram studies did not show any evidence of major vascular occlusion. I personally reviewed all the images. Plan: We'll get an EEG No seizure medication at this time. Treatment of underlying UTI and hydration. We will follow up with EEG I spent 45 min in patient care Thank you for allowing us to participate in this patients care. Please call [facility] with questions, concerns, or change in patients neurological status. This consult was performed via secure telemedicine 2 way audio/visual platform, patient consent obtained. Objective Exam - Vital Signs Vital Signs: Vital Signs - 24 hr 03/26/24 03/26/24 03/26/24 19:30 20:00 20:02 Temperature Pulse Rate 95 H 99 H Respiratory 16 18 Rate Blood Pressure 147/87 133/106 132/72 Blood Pressure [Right Arm] O2 Sat by Pulse 99 100 Oximetry 03/26/24 03/26/24 03/26/24 20:09 20:16 20:31 Temperature 97.4 F Pulse Rate 97 H 96 H Respiratory 18 18 Rate Blood Pressure Blood Pressure 147/87 [Right Arm] O2 Sat by Pulse 100 100 99 Oximetry 03/26/24 03/26/24 03/26/24 20:52 21:01 21:31 Temperature Pulse Rate 100 H 104 H Respiratory 18 23 Rate Blood Pressure 120/85 163/74 189/86 Blood Pressure [Right Arm] O2 Sat by Pulse 100 100 100 Oximetry 03/26/24 03/26/24 03/26/24 22:01 22:30 23:16 Temperature Pulse Rate 101 H 981 H 102 H Respiratory 17 14 14 Rate Blood Pressure 165/109 140/84 142/111 Blood Pressure [Right Arm] O2 Sat by Pulse 100 98 100 Oximetry 03/26/24 03/27/24 03/27/24 23:30 00:00 00:30 Temperature Pulse Rate 95 H Respiratory 16 Rate Blood Pressure 131/63 142/74 120/61 Blood Pressure [Right Arm] O2 Sat by Pulse 99 100 99 Oximetry 03/27/24 03/27/24 03/27/24 01:00 01:49 02:00 Temperature 97.9 F Pulse Rate 102 H 102 H 82 Respiratory 16 20 Rate Blood Pressure 150/86 Blood Pressure 136/63 [Right Arm] O2 Sat by Pulse 100 100 Oximetry 03/27/24 03/27/24 03/27/24 03:00 08:00 08:23 Temperature 98.4 F Pulse Rate 85 Respiratory 20 Rate Blood Pressure Blood Pressure 125/58 [Right Arm] O2 Sat by Pulse 92 L 97 92 L Oximetry 03/27/24 11:44 Temperature 97.9 F Pulse Rate 83 Respiratory 22 Rate Blood Pressure Blood Pressure 111/65 [Right Arm] O2 Sat by Pulse 98 Oximetry Objective Data - Labs Lab/Micro Results: Lab Results-Last 24 Hours 03/26/24 03/26/24 03/26/24 Range/Units 19:35 19:35 19:35 WBC 13.9 H (4.23-9.07) x10^3/uL RBC 3.37 L (4.63-6.08) x10^6/uL Hgb 10.1 L (13.7-17.5) g/dL Hct 29.2 L (40.1-51.0) % MCV 86.6 (79.0-92.2) fL MCH 30.0 (25.7-32.2) pg MCHC 34.6 (32.3-36.5) g/dL RDW 13.4 (11.6-14.4) % Plt Count 418 H (163-337) x10^3/uL MPV 9.6 (9.4-12.4) fL Gran % 74.2 H (34.0-67.9) % Immature Gran % (Auto) 0.4 (0.001-0.429) % Nucleat RBC Rel Count 0.0 (0.00-0.2) % Eos # (Auto) 0.04 (0.04-0.54) x10^3/uL Immature Gran # (Auto) 0.05 H (0.001-0.031) x10^3u/L Absolute Lymphs (auto) 2.77 (1.32-3.57) x10^3/uL Absolute Monos (auto) 0.62 (0.30-0.82) x10^3/uL Absolute Nucleated RBC 0.00 (0.00-0.012) x10^3u/L Lymphocytes % 20.0 L (21.8-53.1) % Monocytes % 4.5 L (5.3-12.2) % Eosinophils % 0.3 L (0.8-7.0) % Basophils % 0.6 (0.2-1.2) % Absolute Granulocytes 10.29 H (1.78-5.38) x10^3/uL Basophils # 0.09 H (0.01-0.08) x10^3/uL Sodium 134 L (135-145) mmol/L Potassium 5.1 (3.5-5.1) mmol/L Chloride 107 (98-107) mmol/L Carbon Dioxide 21 L (22-30) mmol/L Anion Gap 11.2 (5-15) MEQ/L BUN 69 H (9-20) mg/dL Creatinine 1.32 H (0.66-1.25) mg/dL Estimated GFR 57.0 ML/MIN Glucose 111 H (74-106) mg/dL Lactic Acid (0.4-2.0) Calcium 8.9 (8.4-10.2) mg/dL Magnesium 2.1 (1.6-2.3) mg/dL Total Bilirubin 0.50 (0.2-1.3) mg/dL AST 23 (17-59) U/L ALT 16 (0-50) U/L Alkaline Phosphatase 71 (38-126) U/L Troponin I 0.016 (0.000-0.033) ng/mL NT-Pro-B Natriuret Pep 132 (<300) pg/mL Serum Total Protein 6.6 (6.3-8.2) g/dL Albumin 3.8 (3.5-5.0) g/dL Urine Color (Yellow) Urine Appearance (Clear) Urine pH (4.6-8.0) Ur Specific [place] (1.005-1.030) Urine Protein (Negative) Urine Glucose (UA) (Negative) mg/dL Urine Ketones (Negative) Urine Blood (Negative) Urine Nitrite (Negative) Urine Bilirubin (Negative) Urine Urobilinogen (0.2) mg/dL Ur Leukocyte Esterase (Negative) U Hyaline Cast (Auto) (0-2) /LPF Urine Microscopic RBC (0-5) /HPF Urine Microscopic WBC (0-5) /HPF Ur Epithelial Cells (None Seen) /HPF Urine Bacteria (None Seen) /HPF Urine Culture Reflexed (NO) Urine Opiates Level (NEGATIVE) Ur Methadone (NEGATIVE) Urine Barbiturates (NEGATIVE) Ur Phencyclidine (PCP) (NEGATIVE) Urine Amphetamine (NEGATIVE) U Benzodiazepine Level (NEGATIVE) Urine Cocaine (NEGATIVE) Urine Marijuana (THC) (NEGATIVE) Ethyl Alcohol < 10 (0-10) mg/dL 03/26/24 03/26/24 03/26/24 Range/Units 20:16 22:25 22:25 WBC (4.23-9.07) x10^3/uL RBC (4.63-6.08) x10^6/uL Hgb (13.7-17.5) g/dL Hct (40.1-51.0) % MCV (79.0-92.2) fL MCH (25.7-32.2) pg MCHC (32.3-36.5) g/dL RDW (11.6-14.4) % Plt Count (163-337) x10^3/uL MPV (9.4-12.4) fL Gran % (34.0-67.9) % Immature Gran % (Auto) (0.001-0.429) % Nucleat RBC Rel Count (0.00-0.2) % Eos # (Auto) (0.04-0.54) x10^3/uL Immature Gran # (Auto) (0.001-0.031) x10^3u/L Absolute Lymphs (auto) (1.32-3.57) x10^3/uL Absolute Monos (auto) (0.30-0.82) x10^3/uL Absolute Nucleated RBC (0.00-0.012) x10^3u/L Lymphocytes % (21.8-53.1) % Monocytes % (5.3-12.2) % Eosinophils % (0.8-7.0) % Basophils % (0.2-1.2) % Absolute Granulocytes (1.78-5.38) x10^3/uL Basophils # (0.01-0.08) x10^3/uL Sodium (135-145) mmol/L Potassium (3.5-5.1) mmol/L Chloride (98-107) mmol/L Carbon Dioxide (22-30) mmol/L Anion Gap (5-15) MEQ/L BUN (9-20) mg/dL Creatinine (0.66-1.25) mg/dL Estimated GFR ML/MIN Glucose (74-106) mg/dL Lactic Acid 2.1 H (0.4-2.0) Calcium (8.4-10.2) mg/dL Magnesium (1.6-2.3) mg/dL Total Bilirubin (0.2-1.3) mg/dL AST (17-59) U/L ALT (0-50) U/L Alkaline Phosphatase (38-126) U/L Troponin I (0.000-0.033) ng/mL NT-Pro-B Natriuret Pep (<300) pg/mL Serum Total Protein (6.3-8.2) g/dL Albumin (3.5-5.0) g/dL Urine Color Yellow (Yellow) Urine Appearance Clear (Clear) Urine pH 5.0 (4.6-8.0) Ur Specific [place] 1.020 (1.005-1.030) Urine Protein Negative (Negative) Urine Glucose (UA) Negative (Negative) mg/dL Urine Ketones Negative (Negative) Urine Blood Negative (Negative) Urine Nitrite Negative (Negative) Urine Bilirubin Negative (Negative) Urine Urobilinogen 0.2 (0.2) mg/dL Ur Leukocyte Esterase Small A (Negative) U Hyaline Cast (Auto) NONE SEEN (0-2) /LPF Urine Microscopic RBC 0-2 (0-5) /HPF Urine Microscopic WBC 6-10 A (0-5) /HPF Ur Epithelial Cells None Seen (None Seen) /HPF Urine Bacteria None Seen (None Seen) /HPF Urine Culture Reflexed NO (NO) Urine Opiates Level NEGATIVE (NEGATIVE) Ur Methadone NEGATIVE (NEGATIVE) Urine Barbiturates NEGATIVE (NEGATIVE) Ur Phencyclidine (PCP) NEGATIVE (NEGATIVE) Urine Amphetamine POSITIVE A (NEGATIVE) U Benzodiazepine Level NEGATIVE (NEGATIVE) Urine Cocaine NEGATIVE (NEGATIVE) Urine Marijuana (THC) NEGATIVE (NEGATIVE) Ethyl Alcohol (0-10) mg/dL 03/27/24 03/27/24 03/27/24 Range/Units 00:15 05:21 05:21 WBC 11.5 H (4.23-9.07) x10^3/uL RBC 2.79 L (4.63-6.08) x10^6/uL Hgb 8.3 L (13.7-17.5) g/dL Hct 24.3 L (40.1-51.0) % MCV 87.1 (79.0-92.2) fL MCH 29.7 (25.7-32.2) pg MCHC 34.2 (32.3-36.5) g/dL RDW 13.6 (11.6-14.4) % Plt Count 345 H (163-337) x10^3/uL MPV 9.4 (9.4-12.4) fL Gran % 57.3 (34.0-67.9) % Immature Gran % (Auto) 0.4 (0.001-0.429) % Nucleat RBC Rel Count 0.0 (0.00-0.2) % Eos # (Auto) 0.24 (0.04-0.54) x10^3/uL Immature Gran # (Auto) 0.05 H (0.001-0.031) x10^3u/L Absolute Lymphs (auto) 3.78 H (1.32-3.57) x10^3/uL Absolute Monos (auto) 0.74 (0.30-0.82) x10^3/uL Absolute Nucleated RBC 0.00 (0.00-0.012) x10^3u/L Lymphocytes % 33.0 (21.8-53.1) % Monocytes % 6.5 (5.3-12.2) % Eosinophils % 2.1 (0.8-7.0) % Basophils % 0.7 (0.2-1.2) % Absolute Granulocytes 6.57 H (1.78-5.38) x10^3/uL Basophils # 0.08 (0.01-0.08) x10^3/uL Sodium (135-145) mmol/L Potassium (3.5-5.1) mmol/L Chloride (98-107) mmol/L Carbon Dioxide (22-30) mmol/L Anion Gap (5-15) MEQ/L BUN (9-20) mg/dL Creatinine (0.66-1.25) mg/dL Estimated GFR ML/MIN Glucose (74-106) mg/dL Lactic Acid (0.4-2.0) Calcium (8.4-10.2) mg/dL Magnesium (1.6-2.3) mg/dL Total Bilirubin (0.2-1.3) mg/dL AST (17-59) U/L ALT (0-50) U/L Alkaline Phosphatase (38-126) U/L Troponin I < 0.012 < 0.012 (0.000-0.033) ng/mL NT-Pro-B Natriuret Pep (<300) pg/mL Serum Total Protein (6.3-8.2) g/dL Albumin (3.5-5.0) g/dL Urine Color (Yellow) Urine Appearance (Clear) Urine pH (4.6-8.0) Ur Specific [place] (1.005-1.030) Urine Protein (Negative) Urine Glucose (UA) (Negative) mg/dL Urine Ketones (Negative) Urine Blood (Negative) Urine Nitrite (Negative) Urine Bilirubin (Negative) Urine Urobilinogen (0.2) mg/dL Ur Leukocyte Esterase (Negative) U Hyaline Cast (Auto) (0-2) /LPF Urine Microscopic RBC (0-5) /HPF Urine Microscopic WBC (0-5) /HPF Ur Epithelial Cells (None Seen) /HPF Urine Bacteria (None Seen) /HPF Urine Culture Reflexed (NO) Urine Opiates Level (NEGATIVE) Ur Methadone (NEGATIVE) Urine Barbiturates (NEGATIVE) Ur Phencyclidine (PCP) (NEGATIVE) Urine Amphetamine (NEGATIVE) U Benzodiazepine Level (NEGATIVE) Urine Cocaine (NEGATIVE) Urine Marijuana (THC) (NEGATIVE) Ethyl Alcohol (0-10) mg/dL 03/27/24 Range/Units 05:21 WBC (4.23-9.07) x10^3/uL RBC (4.63-6.08) x10^6/uL Hgb (13.7-17.5) g/dL Hct (40.1-51.0) % MCV (79.0-92.2) fL MCH (25.7-32.2) pg MCHC (32.3-36.5) g/dL RDW (11.6-14.4) % Plt Count (163-337) x10^3/uL MPV (9.4-12.4) fL Gran % (34.0-67.9) % Immature Gran % (Auto) (0.001-0.429) % Nucleat RBC Rel Count (0.00-0.2) % Eos # (Auto) (0.04-0.54) x10^3/uL Immature Gran # (Auto) (0.001-0.031) x10^3u/L Absolute Lymphs (auto) (1.32-3.57) x10^3/uL Absolute Monos (auto) (0.30-0.82) x10^3/uL Absolute Nucleated RBC (0.00-0.012) x10^3u/L Lymphocytes % (21.8-53.1) % Monocytes % (5.3-12.2) % Eosinophils % (0.8-7.0) % Basophils % (0.2-1.2) % Absolute Granulocytes (1.78-5.38) x10^3/uL Basophils # (0.01-0.08) x10^3/uL Sodium 135 (135-145) mmol/L Potassium 4.3 (3.5-5.1) mmol/L Chloride 107 (98-107) mmol/L Carbon Dioxide 23 (22-30) mmol/L Anion Gap 9.3 (5-15) MEQ/L BUN 52 H (9-20) mg/dL Creatinine 1.32 H (0.66-1.25) mg/dL Estimated GFR 57.0 ML/MIN Glucose 95 (74-106) mg/dL Lactic Acid (0.4-2.0) Calcium 7.6 L (8.4-10.2) mg/dL Magnesium (1.6-2.3) mg/dL Total Bilirubin (0.2-1.3) mg/dL AST (17-59) U/L ALT (0-50) U/L Alkaline Phosphatase (38-126) U/L Troponin I (0.000-0.033) ng/mL NT-Pro-B Natriuret Pep (<300) pg/mL Serum Total Protein (6.3-8.2) g/dL Albumin (3.5-5.0) g/dL Urine Color (Yellow) Urine Appearance (Clear) Urine pH (4.6-8.0) Ur Specific [place] (1.005-1.030) Urine Protein (Negative) Urine Glucose (UA) (Negative) mg/dL Urine Ketones (Negative) Urine Blood (Negative) Urine Nitrite (Negative) Urine Bilirubin (Negative) Urine Urobilinogen (0.2) mg/dL Ur Leukocyte Esterase (Negative) U Hyaline Cast (Auto) (0-2) /LPF Urine Microscopic RBC (0-5) /HPF Urine Microscopic WBC (0-5) /HPF Ur Epithelial Cells (None Seen) /HPF Urine Bacteria (None Seen) /HPF Urine Culture Reflexed (NO) Urine Opiates Level (NEGATIVE) Ur Methadone (NEGATIVE) Urine Barbiturates (NEGATIVE) Ur Phencyclidine (PCP) (NEGATIVE) Urine Amphetamine (NEGATIVE) U Benzodiazepine Level (NEGATIVE) Urine Cocaine (NEGATIVE) Urine Marijuana (THC) (NEGATIVE) Ethyl Alcohol (0-10) mg/dL - Other Procedures & Test Other Procedures & Test: Respiratory Therapy 03/27/24 14:07 EEG 41-60 Minutes (Normal) ONCE - Radiology Orders Radiology Orders: Radiology Procedures Category Date Time Status CHEST WITHOUT CONTRAST [CT] Routine Exams 03/27/24 08:[address] ANGIOGRAPHY NECK [CT] Stat Exams 03/26/24 22:19 Completed CTA HEAD W AND/OR WO CONTRAST [CT] Stat Exams 03/26/24 22:19 Completed ECHO W/2D AND DOPPLER [US] Routine Exams 03/27/24 03:02 Taken HEAD WITHOUT CONTRAST [CT] Stat Exams 03/26/24 19:42 Completed MRI BRAIN W & W/O CONTRAST [MRI] Routine Exams 03/27/24 03:03 Completed Assessment & Plan - Encounter Encounter: "The entirety of this encounter was performed via Telemedicine using audio and visual "
[2024-03-27] MEDS ORDERED: Lactated Ringers 1,000 ML IV SCH (17:30)
[2024-03-27] MEDS: CEFOXITIN 2 GM/100 ML NACL IVPB 2 GM/100 ML IVPB IV ONE (17:56)
[2024-03-27] MEDS: ROCEPHIN 1 GM / 100 ML NaCl 1 GM/100 ML IVPB IV SCH (22:44)
[2024-03-28 05:40] LABS: Hemoglobin 7.3 g/dL (13.7-17.5); Mean Cell Volume 90.2 fL (79.0-92.2); Mean Corpuscular Hemoglobin 29.9 pg (25.7-32.2); Mean Corpuscular Hgb Concent. 33.2 g/dL (32.3-36.5); Mean Platelet Volume 9.7 fL (9.4-12.4); Platelet Count 344 x10^3/uL (163-337); Red Blood Count 2.44 x10^6/uL (4.63-6.08); Red Cell Distribution Width 13.9 % (11.6-14.4); White Blood Count 10.3 x10^3/uL (4.23-9.07)
[2024-03-28 06:01] LABS: ALBUMIN 3.4 g/dL (3.5-5.0); ANION GAP 6.2 MEQ/L (5-15); BILIRUBIN,TOTAL 0.4 mg/dL (0.2-1.3); Calcium 7.9 mg/dL (8.4-10.2); Creatinine 1 1.07 mg/dL (0.66-1.25); EST GLOMERULAR FILTRATION RATE 73.3 ML/MIN; Potassium 3.7 mmol/L (3.5-5.1)
[2024-03-28 07:44] VITALS: RESP 20
[2024-03-28 11:43] VITALS: BP 110/57; PULSE 81; TEMP 97.8; O2SAT 99
--- NOTE | 2024-03-28 16:01 | PCM.NOTE ---
Date and Time: 03/28/24 8795 Subjective Assessment: is a 74 year old male with a history of hypertension, hyperlipidemia, anxiety, stroke, daily smoker, and methamphetamine. He presented to the ED on 03/27/24 for evaluation of fatigue and dizziness. The patient stated that his symptoms had been ongoing for the past 2 to 3 days prior. Patient reports that he woke up on the floor that morning with a small right sided head abrasion. He denied neck pain. The patient told his brother about how he had been feeling and then his brother advised him to come to the ED for an evaluation. Patient denies history of prior syncope. He did report to the ED that around the time of symptom onset, he had smoked methamphetamine. He denies any visual di sturbances, weakness or numbness. Neurology consulted, EEG reviewed and negative, and MRI of brain negative for stroke. Echo results show EF 60%. Per PT he needs a rollator and this cannot be delivered until tomorrow. COntinue IV antibiotic for UTI. Will change to PO tomorrow. He will d/c tomorrow then. He denies any further concerns at this time. - Review of Systems Constitutional: No Fever, No Chills Eyes: No Symptoms Ears, Nose, & Throat: No Symptoms Respiratory: No Cough, No Short Of Breath Cardiac: No Chest Pain, No Edema, No Syncope Abdominal/Gastrointestinal: No Abdominal Pain, No Nausea, No Vomiting, No Diarrhea Genitourinary Symptoms: No Dysuria Musculoskeletal: No Back Pain, No Neck Pain Skin: No Rash Neurological: No Dizziness, No Focal Weakness, No Sensory Changes Psychological: No Symptoms Endocrine: No Symptoms Hematologic/Lymphatic: No Symptoms Immunological/Allergic: No Symptoms Objective Exam General Appearance: no apparent distress, alert Neurologic Exam: alert, oriented x 3, cooperative, normal mood/affect, nml cerebellar function, sensation nml, No motor deficits Skin Exam: normal color, warm, dry Eye Exam: PERRL, EOMI, eyes nml inspection Ears, Nose, Throat Exam: normal ENT inspection, pharynx normal, moist mucous membranes Neck Exam: normal inspection, non-tender, supple, full range of motion Respiratory Exam: normal breath sounds, lungs clear, No respiratory distress Cardiovascular Exam: regular rate/rhythm, normal heart sounds Gastrointestinal/Abdomen Exam: soft, No tenderness, No mass Extremity Exam: normal inspection, normal range of motion Back Exam: normal inspection, normal range of motion, No CVA tenderness, No vertebral tenderness Male Genitalia Exam: deferred Rectal Exam: deferred Objective Data Vital Signs: Vital Signs - 24 hr Temp Pulse Resp BP Pulse Ox 03/28/24 11:42 97.8 F 81 20 110/57 99 03/28/24 07:43 97.6 F 74 20 120/58 97 03/28/24 04:00 97.5 F 73 16 118/55 96 03/28/24 00:00 97.6 F 75 16 119/58 98 03/27/24 20:00 97.5 F 80 18 122/58 99 03/27/24 16:00 98.4 F 76 20 122/60 99 Pain Assessment - Last Documented Pain Intensity 0 Intake and Output: Intake & Output 03/26/24 03/27/24 03/28/24 03/29/24 11:59 11:59 11:59 11:59 Intake Total 120 3825 Output Total 850 1850 Balance -730 1975 Weight 77.9 kg Lab Results: Lab Results-Last 24 Hours 03/28/24 03/28/24 Range/Units 04:29 04:29 WBC 10.3 H (4.23-9.07) x10^3/uL RBC 2.44 L (4.63-6.08) x10^6/uL Hgb 7.3 L (13.7-17.5) g/dL Hct 22.0 L (40.1-51.0) % MCV 90.2 (79.0-92.2) fL MCH 29.9 (25.7-32.2) pg MCHC 33.2 (32.3-36.5) g/dL RDW 13.9 (11.6-14.4) % Plt Count 344 H (163-337) x10^3/uL MPV 9.7 (9.4-12.4) fL Sodium 135 (135-145) mmol/L Potassium 3.7 (3.5-5.1) mmol/L Chloride 109 H (98-107) mmol/L Carbon Dioxide 23 (22-30) mmol/L Anion Gap 6.2 (5-15) MEQ/L BUN 28 H (9-20) mg/dL Creatinine 1.07 (0.66-1.25) mg/dL Estimated GFR 73.3 ML/MIN Glucose 80 (74-106) mg/dL Calcium 7.9 L (8.4-10.2) mg/dL Total Bilirubin 0.40 (0.2-1.3) mg/dL AST 27 (17-59) U/L ALT 15 (0-50) U/L Alkaline Phosphatase 60 (38-126) U/L Serum Total Protein 6.0 L (6.3-8.2) g/dL Albumin 3.4 L (3.5-5.0) g/dL Radiology Exams: Radiology Procedures Category Date Time Status CHEST WITHOUT CONTRAST [CT] Routine Exams 03/27/24 08:[address] ANGIOGRAPHY NECK [CT] Stat Exams 03/26/24 22:19 Completed CTA HEAD W AND/OR WO CONTRAST [CT] Stat Exams 03/26/24 22:19 Completed ECHO W/2D AND DOPPLER [US] Routine Exams 03/27/24 03:02 Taken HEAD WITHOUT CONTRAST [CT] Stat Exams 03/26/24 19:42 Completed MRI BRAIN W & W/O CONTRAST [MRI] Routine Exams 03/27/24 03:03 Completed Multi-Disciplinary Progress Notes: Multi-Disciplinary Progress Notes 03/28/24 10:45 Radiology Note by EZEQUIEL HUSSEIN TRANSTHORACIC ECHOCARDIOGRAM 03/27/2024: 1. Normal chamber sizes. 2. Mild concentric left ventricular hypertrophy. 3. Normal left ventricular systolic function without focal wall motion abnormalities. Estimated EF 60%. 4. Mild diastolic dysfunction. 5. Normal right ventricular systolic function. 6. Mild aortic sclerosis without stenosis. 7. Mild aortic regurgitation. 8. Unable to estimate PA systolic pressure. 9. Normal right atrial pressure. 10. No pericardial effusion. Ezequiel Hussein MD [facility] Initialized on 03/28/24 10:45 - END OF NOTE Assessment/Plan (1) Syncope and collapse Current Visit: Yes Status: Acute Assessment & Plan: - Echo: TRANSTHORACIC ECHOCARDIOGRAM 03/27/2024: 1. Normal chamber sizes. 2. Mild concentric left ventricular hypertrophy. 3. Normal left ventricular systolic function without focal wall motion abnormalities. Estimated EF 60%. 4. Mild diastolic dysfunction. 5. Normal right ventricular systolic function. 6. Mild aortic sclerosis without stenosis. 7. Mild aortic regurgitation. 8. Unable to estimate PA systolic pressure. 9. Normal right atrial pressure. 10. No pericardial effusion. - MRI: Impression: 1. Atrophy and degenerative micro-ischemia within normal limits. 2. No acute intracranial abnormalities or evidence for evolving large vessel territorial stroke. 3. Negative contrast exam. 4. Minimal paranasal sinus disease. - PT eval and treat - daily CBC, and CMP reviewed Code(s): R55 - SYNCOPE AND COLLAPSE (2) Acute renal injury Current Visit: Yes Status: Resolved Assessment & Plan: - IV fluids- stopped - BARBARA likely due to dehydration. 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 Assessment & Plan: - advised cessation - states he does not need help OP Code(s): F15.90 - OTHER STIMULANT USE, UNSPECIFIED, UNCOMPLICATED (4) Dizziness Current Visit: Yes Status: Resolved Assessment & Plan: - resolved Code(s): R42 - DIZZINESS AND GIDDINESS (5) Essential hypertension Current Visit: Yes Status: Chronic Assessment & Plan: - Monitor BP on home regimen Code(s): I10 - ESSENTIAL (PRIMARY) HYPERTENSION (6) UTI (urinary tract infection) Current Visit: Yes Status: Acute Assessment & Plan: - IV antibiotics- will change to PO at DC - No culture done Code(s): N39.0 - URINARY TRACT INFECTION, SITE NOT SPECIFIED (7) Leukocytosis Current Visit: No Status: Acute Assessment & Plan: - Improved 10.3- needs OP f/u - radiology results reviewed Code(s): D72.829 - ELEVATED WHITE BLOOD CELL COUNT, UNSPECIFIED (8) Seizure Current Visit: Yes Status: Acute Assessment & Plan: - Pt thought he had a seizure yesterday but immediately used call light after to report to nurse- unwitnessed - EEG was negative - Neurology notes reviewed Code(s): R56.9 - UNSPECIFIED CONVULSIONS (9) Pulmonary fibrosis Current Visit: Yes Status: Acute Assessment & Plan: - Chest CT: Impression: Again chronic findings including diffuse pulmonary fibrosis/scarring, arteriosclerotic disease, chronic bony findings, and old granulomatous disease. Remaining CT chest high-resolution exam is negative. - F/U with Pulm OP - O2 99% RA Code(s): J84.10 - PULMONARY FIBROSIS, UNSPECIFIED
--- NOTE | 2024-03-28 16:21 | PCM.DS ---
Discharge Summary Date of Admission: 03/27/24 01:45 Date of Discharge: 03/28/24 Admitting Physician: CHIDI TAMEZ MD Consults: Consults on Case 03/27/24 08:55 Consult Pulmonology ROUTINE 03/27/24 12:49 Consult Neurology ROUTINE Primary Care Provider: KRISTIN TAVERAS Allergies Allergies No Known Drug Allergies Allergy (Verified 03/27/24 02:02) Hospital Summary - Hospital Course Hospital Course: is a 74 year old male with a history of hypertension, hyperlipidemia, anxiety, stroke, daily smoker, and methamphetamine. He presented to the ED on 03/27/24 for evaluation of fatigue and dizziness. The patient stated that his symptoms had been ongoing for the past 2 to 3 days prior. Patient reports that he woke up on the floor that morning with a small right sided head abrasion. He denied neck pain. The patient told his brother about how he had been feeling and then his brother advised him to come to the ED for an evaluation. Patient denies history of prior syncope. He did report to the ED that around the time of symptom onset, he had smoked methamphetamine. He denies any visual disturbances, weakness or numbness. Neurology consulted, EEG reviewed and negative, and MRI of brain negative for stroke. Echo results show EF 60%. Per PT he needs a rollator and will be delivered today. Continue IV antibiotic for UTI. Will change to PO. He denies any further concerns at this time. - Vitals & Intake/Output Vital Signs: Vital Signs Temperature 97.8 F 03/28/24 11:42 Pulse Rate 81 03/28/24 11:42 Respiratory Rate 20 03/28/24 11:42 Blood Pressure 110/57 03/28/24 11:42 O2 Sat by Pulse Oximetry 99 03/28/24 11:42 Intake & Output: Intake & Output 03/26/24 03/27/24 03/28/24 03/29/24 11:59 11:59 11:59 11:59 Intake Total 120 3825 Output Total 850 1850 Balance -730 1975 Weight 77.9 kg - Lab Result Diagrams: 03/28/24 04:29 03/28/24 04:29 Lab Results-Last 24 Hrs: Lab Results-Last 24 Hours 03/28/24 03/28/24 Range/Units 04:29 04:29 WBC 10.3 H (4.23-9.07) x10^3/uL RBC 2.44 L (4.63-6.08) x10^6/uL Hgb 7.3 L (13.7-17.5) g/dL Hct 22.0 L (40.1-51.0) % MCV 90.2 (79.0-92.2) fL MCH 29.9 (25.7-32.2) pg MCHC 33.2 (32.3-36.5) g/dL RDW 13.9 (11.6-14.4) % Plt Count 344 H (163-337) x10^3/uL MPV 9.7 (9.4-12.4) fL Sodium 135 (135-145) mmol/L Potassium 3.7 (3.5-5.1) mmol/L Chloride 109 H (98-107) mmol/L Carbon Dioxide 23 (22-30) mmol/L Anion Gap 6.2 (5-15) MEQ/L BUN 28 H (9-20) mg/dL Creatinine 1.07 (0.66-1.25) mg/dL Estimated GFR 73.3 ML/MIN Glucose 80 (74-106) mg/dL Calcium 7.9 L (8.4-10.2) mg/dL Total Bilirubin 0.40 (0.2-1.3) mg/dL AST 27 (17-59) U/L ALT 15 (0-50) U/L Alkaline Phosphatase 60 (38-126) U/L Serum Total Protein 6.0 L (6.3-8.2) g/dL Albumin 3.4 L (3.5-5.0) g/dL - Radiology Exams Ordered Rad Exams-Entire Visit: Radiology Procedures Category Date Time Status CHEST WITHOUT CONTRAST [CT] Routine Exams 03/27/24 08:[address] ANGIOGRAPHY NECK [CT] Stat Exams 03/26/24 22:19 Completed CTA HEAD W AND/OR WO CONTRAST [CT] Stat Exams 03/26/24 22:19 Completed ECHO W/2D AND DOPPLER [US] Routine Exams 03/27/24 03:02 Taken HEAD WITHOUT CONTRAST [CT] Stat Exams 03/26/24 19:42 Completed MRI BRAIN W & W/O CONTRAST [MRI] Routine Exams 03/27/24 03:03 Completed - Procedures and Test Procedures and Tests throughout Hospitalization: Therapy Orders & Screens 03/27/24 02:13 Smoking Cessation Education ONCE Comment: Diagnosis: SYNCOPE, COLLAPSE, DIZZINESS, METHAMPHETAMINE USE, UTI Smoking Status: Current every day smoker How long have you smoked: 55 Have you smoked in the past 12 months: Yes Approximately how many cigarettes per day: 1/2-1 PACK Do you dip or chew tobacco: No 03/27/24 03:04 PT Eval & Treat (MD Order) ONCE Reason for Eval:: dizziness, syncope Diagnosis: SYNCOPE, COLLAPSE, DIZZINESS, METHAMPHETAMINE USE, UTI 03/27/24 14:07 EEG 41-60 Minutes (Normal) ONCE Comment: Reason For Exam: Diagnosis: SYNCOPE, COLLAPSE, DIZZINESS, METHAMPHETAMINE USE, UTI Discharge Exam General Appearance: no apparent distress, alert Neurologic Exam: alert, oriented x 3, cooperative, normal mood/affect, nml cerebellar function, sensation nml, No motor deficits Eye Exam: PERRL, EOMI, eyes nml inspection Ears, Nose, Throat Exam: normal ENT inspection, pharynx normal, moist mucous membranes Neck Exam: normal inspection, non-tender, supple, full range of motion Respiratory Exam: normal breath sounds, lungs clear, No respiratory distress Cardiovascular Exam: regular rate/rhythm, normal heart sounds Gastrointestinal/Abdomen Exam: soft, No tenderness, No mass Male Genitalia Exam: deferred Rectal Exam: deferred Back Exam: normal inspection, normal range of motion, No CVA tenderness, No vertebral tenderness Extremity Exam: normal inspection, normal range of motion Skin Exam: normal color, warm, dry Final Diagnosis/Problem List - Final Discharge Diagnosis/Problem (1) Syncope and collapse Current Visit: Yes Status: Acute Code(s): R55 - SYNCOPE AND COLLAPSE (2) Acute renal injury Current Visit: Yes Status: Resolved Code(s): N17.9 - ACUTE KIDNEY FAILURE, UNSPECIFIED (3) 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 Code(s): F15.90 - OTHER STIMULANT USE, UNSPECIFIED, UNCOMPLICATED (4) Dizziness Current Visit: Yes Status: Resolved Code(s): R42 - DIZZINESS AND GIDDINESS (5) Essential hypertension Current Visit: Yes Status: Chronic Code(s): I10 - ESSENTIAL (PRIMARY) HYPE RTENSION (6) UTI (urinary tract infection) Current Visit: Yes Status: Acute Code(s): N39.0 - URINARY TRACT INFECTION, SITE NOT SPECIFIED (7) Leukocytosis Current Visit: No Status: Acute Code(s): D72.829 - ELEVATED WHITE BLOOD CELL COUNT, UNSPECIFIED (8) Seizure Current Visit: Yes Status: Acute Code(s): R56.9 - UNSPECIFIED CONVULSIONS (9) Pulmonary fibrosis Current Visit: Yes Status: Acute Assessment & Plan: (1) Syncope and collapse Current Visit: Yes Status: Acute Assessment & Plan: - Echo: TRANSTHORACIC ECHOCARDIOGRAM 03/27/2024: 1. Normal chamber sizes. 2. Mild concentric left ventricular hypertrophy. 3. Normal left ventricular systolic function without focal wall motion abnormalities. Estimated EF 60%. 4. Mild diastolic dysfunction. 5. Normal right ventricular systolic function. 6. Mild aortic sclerosis without stenosis. 7. Mild aortic regurgitation. 8. Unable to estimate PA systolic pressure. 9. Normal right atrial pressure. 10. No pericardial effusion. - MRI: Impression: 1. Atrophy and degenerative micro-ischemia within normal limits. 2. No acute intracranial abnormalities or evidence for evolving large vessel territorial stroke. 3. Negative contrast exam. 4. Minimal paranasal sinus disease. - PT eval and treat - daily CBC, and CMP reviewed Code(s): R55 - SYNCOPE AND COLLAPSE (2) Acute renal injury Current Visit: Yes Status: Resolved Assessment & Plan: - IV fluids- stopped - BARBARA likely due to dehydration. 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 Assessment & Plan: - advised cessation - states he does not need help OP Code(s): F15.90 - OTHER STIMULANT USE, UNSPECIFIED, UNCOMPLICATED (4) Dizziness Current Visit: Yes Status: Resolved Assessment & Plan: - resolved Code(s): R42 - DIZZINESS AND GIDDINESS (5) Essential hypertension Current Visit: Yes Status: Chronic Assessment & Plan: - Monitor BP on home regimen Code(s): I10 - ESSENTIAL (PRIMARY) HYPERTENSION (6) UTI (urinary tract infection) Current Visit: Yes Status: Acute Assessment & Plan: - IV antibiotics- will change to PO at DC - No culture done Code(s): N39.0 - URINARY TRACT INFECTION, SITE NOT SPECIFIED (7) Leukocytosis Current Visit: No Status: Acute Assessment & Plan: - Improved 10.3- needs OP f/u - radiology results reviewed Code(s): D72.829 - ELEVATED WHITE BLOOD CELL COUNT, UNSPECIFIED (8) Seizure Current Visit: Yes Status: Acute Assessment & Plan: - Pt thought he had a seizure yesterday but immediately used call light after to report to nurse- unwitnessed - EEG was negative - Neurology notes reviewed Code(s): R56.9 - UNSPECIFIED CONVULSIONS (9) Pulmonary fibrosis Current Visit: Yes Status: Acute Assessment & Plan: - Chest CT: Impression: Again chronic findings including diffuse pulmonary fibrosis/scarring, arteriosclerotic disease, chronic bony findings, and old granulomatous disease. Remaining CT chest high-resolution exam is negative. - F/U with Pulm OP - O2 99% RA Code(s): J84.10 - PULMONARY FIBROSIS, UNSPECIFIED Code(s): J84.10 - PULMONARY FIBROSIS, UNSPECIFIED - Discharge Discharge Date: 03/28/24 Disposition: Home, Self-Care Condition: Stable Prescriptions: Continue Metoprolol Succinate 50 mg [Toprol Xl 50 MG] 50 mg PO DAILY Aspirin EC 81 mg [Ecotrin 81 mg] 81 mg PO DAILY Follow up with: KRISTIN TAVERAS MD [Primary Care Provider] - 04/02/24 2:15 pm
== END 2024-03-28 17:00 | disposition home or self-care (01) ==
LOC: ED 19:24 → MED SURG 03-27 01:45
PROVIDERS: ADMIT Internal Medicine; ATTEND Internal Medicine
DX: R55 Syncope and collapse (principal); N17.9 Acute kidney failure, unspecified; F15.99 Other stimulant use, unspecified with unspecified stimulant-induced disorder; R42 Dizziness and giddiness; I10 Essential (primary) hypertension; E78.5 Hyperlipidemia, unspecified; N39.0 Urinary tract infection, site not specified; D72.829 Elevated white blood cell count, unspecified; R56.9 Unspecified convulsions; J84.10 Pulmonary fibrosis, unspecified; F17.200 Nicotine dependence, unspecified, uncomplicated; Z79.899 Other long term (current) drug therapy
CPT/HCPCS: 36415; 70450; 70496; 70498; 70553; 71250; 80048; 80053; 80307; 81001; 82077; 83605; 83735; 83880; 84484; 85025; 85027; 93005; 93041; 93306; 94760; 95812; 97162; 99285; Q3014; 93268; J0696; J1650; A9270-GY; G0378